=== PATIENT | female | born 1945 | race Caucasian/White ===

== ENCOUNTER 2022-09-18 13:35 | Inpatient (IN) | payer MEDICARE, SELFPAY ==
[2022-09-18 13:43] VITALS: BP 110/67; PULSE 94; RESP 18; TEMP 36.3; O2SAT 94; BMI 15.5
--- NOTE | 2022-09-18 15:23 | NURSING ---
Addendum entered by Nely Link 09/18/22 15:51: returned call and pt has no history of pneumo vaccine. ok with pt getting it here. Original Note: message left with PCP regarding pneumonia vaccine. not sure if pt has had one or not. awaiting return call.
[2022-09-18] MEDS: Carbidopa/Levodopa 25/100 Tablet GT ×2 (16:32→22:12)
[2022-09-18] MEDS: Jevity 1.5. 1,000 ML Bottle 240 ML GT ×2 (16:34→22:38)
[2022-09-18] MEDS: Acetaminophen 650 MG/20 ML UDC GT (16:35)
--- NOTE | 2022-09-18 21:33 | HP.PCM_ITS ---
HPI - General General Date of Admission: 09/18/22 Date of Service: 09/18/22 Chief Complaint: Here for rehabilitation. HPI Narrative ANA HOLLIS, is a 77 Female who presents with followin09/13/[address] [facility]. Right hip pain after fall, tripped walking into her bedroom. No head injury, no loss of consciousness. Hurts to fully straighten right leg. X-ray shows right femur fracture, NPO, pain control, Orthopedics consult, SCD, optimized for surgery, PT/OT. 09/14/2022 Dr. Jiménez performed percutaneous pinning right femoral neck fracture. Patient has dysphagia, NPO, tubefeed per PEG tube only. was using more TF to assist with weight gain. DVT prophylaxis per Ortho. Zyprexa IM last night for acute delirium with confusion. 09/16/2022 Urine tox negative. WBAT all extremities. Hemoglobin 13.1. 09/18/2022 Admit to TCU with debility, here for rehabilitation, strengthening, prior to discharge home with . [facility] Medical History (Updated 09/18/22 @ 21:[address] George Jacob MD) Chronic liver disease Closed right hip fracture Debility Dysphagia GERD (gastroesophageal reflux disease) History of basal cell cancer History of gastrostomy tube placement Parkinson disease Home Medications Jevity 1.5 Apolinar 240 ml G-tube Q6H tube feeding 09/18/22 [History Last Taken Unknown] acetaminophen 325 mg tablet 650 mg feeding tube Q6H PRN pain/fever 09/18/22 [History Last Taken Unknown] carbidopa 25 mg-levodopa 100 mg tablet 1.5 tab feeding tube 0800,2200 parkinsons 09/18/22 [History Last Taken Unknown] carbidopa 25 mg-levodopa 100 mg tablet 2 tab feeding tube 1200,1700 parkisons 09/18/22 [History Last Taken Unknown] docusate sodium 50 mg/5 mL oral liquid 200 mg feeding tube QHS bowels 09/18/22 [History Last Taken Unknown] enoxaparin 40 mg/0.4 mL subcutaneous syringe 40 mg subcut DAILY blood thinner 09/18/22 [History Last Taken Unknown] insulin lispro 100 unit/mL subcutaneous pen 0 - 12 sliding scale dose subcut TID blood sugars 09/18/22 [History Last Taken Unknown] sennosides 8.8 mg/5 mL oral syrup (senna) 10 ml PO QHS PRN stool softener 09/18/22 [History Last Taken Unknown] Allergy/AdvReac Type Severity Reaction Status Date / Time Sulfa (Sulfonamide Allergy Rash Verified 09/18/22 14:05 Antibiotics) [sulfa drugs] shrimp AdvReac Nausea Verified 09/18/22 14:05 Family History (Updated 09/18/22 @ 21:[address] George Jacob MD) Brother Skin cancer Father COPD (chronic obstructive pulmonary disease) Brother Myocardial infarction Surgical History (Updated 09/18/22 @ 21:[address] George Jacob MD) History of breast biopsy History of cholecystectomy History of lumbar fusion History of mandibular surgery History of partial hysterectomy History of tonsillectomy History of ureteroscopy Social History (Updated 09/18/22 @ 21:[address] George Jacob MD) household members: spouse Smoking Status: Former smoker alcohol intake: never substance use type: does not use ROS Constitutional Constitutional: Denies chills, fever(s) or weight gain ENT HEENT: Denies headache(s), nasal congestion or nasal discharge Cardiovascular Cardiovascular: Denies chest pain or palpitations Respiratory/Chest Respiratory/Chest: Denies cough, excessive phlegm production or shortness of breath with exertion Gastrointestinal Gastrointestinal: Denies abdominal pain, nausea or vomiting Genitourinary Genitourinary: Denies dysuria Musculoskeletal Musculoskeletal: Denies joint pain or joint swelling Integumentary Integumentary: Denies rash or wounds Neurologic Neurologic: Denies focal weakness, numbness or tingling Psychiatric Psychiatric: Denies anxiety, auditory hallucinations, depression, homicidal ideation or suicidal ideation Vital Signs Vital Signs Vital Signs: 09/18/22 13:43 09/18/22 13:43 Temperature 97.4 F L Temperature Source Oral Pulse Rate 94 Pulse Rhythm Regular Respiratory Rate 18 18 Respiratory Effort Normal Non-Labored Respiratory Depth Normal Respiratory Pattern Normal Blood Pressure 110/67 Blood Pressure Mean 81 Blood Pressure Source Monitor Blood Pressure Position Semi-Fowlers Blood Pressure Location Left Arm Pulse Ox 94 Oxygen Delivery Method Room Air Room Air Weight Weight: 44.906 kg Body Mass Index (BMI) 15.5 Physical Exam Const alert General Appearance: cooperative HEENT normocephalic Eyes PERRL and EOMs intact bilaterally Neck supple, no JVD and no carotid bruits Resp normal respiratory effort, normal air movement and clear to auscultation bilaterally Cardio regular rate and regular rhythm GI normal to inspection, nondistended, normoactive bowel sounds, non-tender and non-distended GI Narrative: PEG tube. Extremity normal capillary refill General Extremity: Negative for edema Skin no rashes or lesions noted General Skin Exam: no breakdown Psych affect normal Appearance: appropriate Assessment & Plan Assessment/Plan (1) Debility: (2) Closed right hip fracture: (3) History of basal cell cancer: (4) Chronic liver disease: (5) Parkinson disease: (6) Dysphagia: (7) GERD (gastroesophageal reflux disease): PLAN: Plan 77 year old female with below past medical history hospitalized for right femur fracture, underwent percutaneous pinning right femur fracture 09/14/[address] Jiménez, complicated by acute delirium, admitted to TCU with debility, here for rehabilitation, strengthening, prior to discharge home with . * Debility - PT/OT. * Cognition - ST. * Pain - Tylenol 650mg q6h prn. * Bowel - colace 200mg qhs, senokot 2 tablets qhs prn. * Adult immunization - Administer pneumonia vaccine, covid19 vaccine, flu vaccine. * DVT prophylaxis - Lovenox 40mg sc daily thru 10/01/2022. * Parkinson Disease - Sinemet 25/100mg 1.5 tablets 0800, 2200; Sinemet 25/100mg 2 tablets 1200, 1700. * Dysphagia s/p PEG tube - Jevity 1.5 240ml 4x/day. * GERD - Lansoprazole 30mg qhs.
[2022-09-18 21:40] LABS: Bedside Glucose 96 mg/dL (74-106)
[2022-09-18] MEDS: Docusate Sodium 100 MG/10 ML UDC 200 MG GT (22:12)
[2022-09-18] MEDS: Lansoprazole 15 MG Capsule.DR 30 MG GT (22:12)
[2022-09-18] MEDS: CLARIFY ORDER NOTE (22:39)
[2022-09-19] MEDS: Jevity 1.5. 1,000 ML Bottle 240 ML GT ×4 (04:42→23:20)
[2022-09-19] MEDS: Enoxaparin 40 MG/0.4 ML Syringe SC (04:56)
[2022-09-19 05:37] LABS: Absolute Lymphocyte Count 0.83 X10^3/uL (0.83-4.51); Absolute Neutrophil Count 5.4 X10^3/uL (2.0-7.7); Basophil# 0.04 X10^3/uL; Basophil% 0.6 % (0-1); Eosinophil# 0.27 X10^3/uL; Eosinophils% 3.8 % (0-5); Hematocrit 41.3 % (37-47); Hemoglobin 13.6 g/dL (12.0-15.0); Lymphocyte # 0.83 X10^3/ul (0.83-4.51); Lymphocyte % 11.7 % (19-41); Mean Corp Hgb Conc 32.9 g/dL (32-36); Mean Corpuscular Hgb 30.9 pg (27.0-32.0); Mean Corpuscular Volume 93.9 fL (81-99); Mean Platelet Vol. 10.3 fl (6.2-12.0); Monocyte# 0.52 X10^3/uL; Monocyte% 7.3 % (0-10); NRBC Flagged by Analyzer 0 % (0-5); Neutrophil # 5.37 X10^3/uL (2.7-7.7); Neutrophil % 75.9 % (47-70); Platelet Count 154 K/mm3 (150-450); RBC Distribution Width CV 11.7 % (11.6-14.6); RBC Distribution Width SD 40.3 fl (35.1-43.9); White Blood Count 7.1 K/mm3 (4.4-11.0)
[2022-09-19 05:38] LABS: Differential Indicated SCAN CRITERIA MET
[2022-09-19 05:56] LABS: Anion Gap 4 (5-15); BUN 26 mg/dL (7-18); BUN/Creat Ratio 44.1 RATIO (10-20); Calcium,Total 8.7 mg/dL (8.5-10.1); Chloride 103 mmol/L (98-107); Creatinine, Serum 0.59 mg/dL (0.55-1.02); EST Glomerular Filtration Rate 105 mL/min (>60); Est Glom Filt Rate - Afr Amer 127 mL/min (>60); Estimated Creatinine Clearance 32.34 ml/min; Glucose 173 mg/dL (74-106); Potassium 4.2 mmol/L (3.5-5.1); Sodium Level 136 mmol/L (136-145)
[2022-09-19 06:23] LABS: Bedside Glucose 184 mg/dL (74-106)
[2022-09-19] MEDS: Carbidopa/Levodopa 25/100 Tablet GT ×4 (08:28→22:26)
--- NOTE | 2022-09-19 11:01 | CASEMGMT ---
Social Work Met with patient to complete initial assessment. present for assessment and assisted in answering questions. Introduced self and role. Discussed code status. Confirmed full code. MOLST completed and placed in Dr folder. Educated to [facility] insurance with $0 copay and continued stay is not guaranteed with each review. Pt's goal is to return home with assisting pt. Pt has old peg. SW to continue to follow for DC planning. Sara Vieira, FOAM GUN OPERATOR BUSINESS INTERN
[2022-09-19] MEDS: Pneumococcal Vaccine 20 Valent 0.5 ML Syringe IM (11:05)
[2022-09-19] MEDS: Tuberculin,Purif.prot.deriv. 50 TU/ML Vial 0.1 ML ID (11:07)
[2022-09-19 11:27] LABS: Bedside Glucose 97 mg/dL (74-106)
--- NOTE | 2022-09-19 13:21 | PHA.CONS_ITS ---
TCU RX Drug Regimen Review Subjective: TCU admission. 77 YOF presented to [facility] on 09/13 for pain in hip after a fall. Hospitalized for right femur fracture, underwent percutaneous pinning right femur fracture 09/14/[address] Jiménez, complicated by acute delirium. Admitted to TCU on 09/18 with debility for rehabilitation and strengthening. Objective: Allergies Sulfa (Sulfonamide Antibiotics) [sulfa drugs] Allergy (Verified 09/18/22 14:05) Rash shrimp Adverse Reaction (Verified 09/18/22 14:05) Nausea Current Medications Generic Name Dose Route Start Last Admin Trade Name Freq PRN Reason Stop Dose Admin Acetaminophen 650 mg 09/18/22 14:11 09/18/22 16:35 Acetaminophen 650 Mg/20 Ml Udc GT 650 mg Q6H PRN Administration pain 1-10/fever Carbidopa/Levodopa 1.5 tablet 09/18/22 22:00 09/19/22 08:28 Carbidopa/Levodopa 25/100 Tablet GT 1.5 tablet 0800,2200 CHERI Administration Carbidopa/Levodopa 2 tablet 09/18/22 17:00 09/19/22 11:08 Carbidopa/Levodopa 25/100 Tablet GT 2 tablet 1200,1700 CHERI Administration Docusate Sodium 200 mg 09/18/22 22:00 09/18/22 22:12 Docusate Sodium 100 Mg/10 Ml Udc GT 200 mg QHS CHERI Administration Enoxaparin Sodium 40 mg 09/19/22 06:00 09/19/22 04:56 Enoxaparin 40 Mg/0.4 Ml Syringe SC 10/01/22 06:01 40 mg DAILY CHERI Administration Enteral Nutritional Formula 240 ml 09/18/22 17:00 09/19/22 11:38 Jevity 1.5. 1,000 Ml Bottle GT 240 ml 0500,1100,1700,2300 CHERI Administration Sodium Chloride 250 mls @ 15 mls/hr 09/18/22 14:02 IV .[id number] PRN Saline Flush Sodium Chloride 250 mls @ 15 mls/hr 09/18/22 14:02 IV .[id number] PRN Additional IVPB Infusion Lansoprazole 30 mg 09/18/22 22:00 09/18/22 22:12 Lansoprazole 15 Mg Capsule. GT 30 mg QHS CHERI Administration Senna 2 tablet 09/18/22 14:15 Senna Tablet GT QHS PRN stool softener Sodium Chloride 10 - 40 ml 09/18/22 14:02 0.9% Saline Lock 10 Ml Syringe IV UD PRN SALINE FLUSH Tuberculin PPD 0.1 ml 09/26/22 10:00 Tuberculin,Purif.Prot.Deriv. 50 Tu/Ml Vial ID 09/26/22 10:01 X1 ONE Problem List (Last Updated 09/18/22 @ 21:[address] George Jacob MD) GERD (gastroesophageal reflux disease) (Acute) Dysphagia (Acute) Parkinson disease (Acute) Chronic liver disease (Chronic) History of basal cell cancer (Acute) Closed right hip fracture (Acute) Debility (Acute) Vital Signs Temp Pulse Resp BP Pulse Ox O2 Del Method 97.4 F L 94 18 110/67 94 Room Air 09/18/22 13:43 09/18/22 13:43 09/18/22 13:43 09/18/22 13:43 09/18/22 13:43 09/18/22 13:43 Oxygen Delivery Method Room Air Weight: 44.906 kg Body Mass Index (BMI) 15.5 Sodium 136 mmol/L (136-145) 09/19/22 05:30 Potassium 4.2 mmol/L (3.5-5.1) 09/19/22 05:30 Chloride 103 mmol/L (98-107) 09/19/22 05:30 Carbon Dioxide 29.0 mmol/L (21.0-32.0) 09/19/22 05:30 Anion Gap 4 (5-15) L 09/19/22 05:30 BUN 26 mg/dL (7-18) H 09/19/22 05:30 Creatinine 0.59 mg/dL (0.55-1.02) 09/19/22 05:30 Est GFR (MDRD) Af Amer 127 mL/min (>60) 09/19/22 05:30 Est GFR (MDRD) Non-Af 105 mL/min (>60) 09/19/22 05:30 BUN/Creatinine Ratio 44.1 RATIO (10-20) H 09/19/22 05:30 Glucose 173 mg/dL (74-106) H 09/19/22 05:30 Assessment/Plan: 1. Pain: acetaminophen 650mg liquid GT Q6H PRN pain (1-10). Please continue to monitor pain, PRN medication use. Pt has had one dose for pain score of 4/10 in the hip. 2. Bowel: docusate liquid 200mg GT QHS, senna 2T GT QHS PRN constipation. Please continue to monitor increased/decreased diarrhea, PRN medication use. Resident has not had any PRN doses. No documented bowel movements. 3. DVT prophylaxis: enoxaparin 40mg SC daily?thru 10/01/2022. Please continue to monitor s/s of DVT, increased bleeding/bruising, renal function (CrCl 40 mL/min using actual body weight and SCr of 0.8 adjusted for age), h/h (Hgb: 13.6 Hct: 41.3). 4. Parkinson Disease: Sinemet 25/100mg 1.5 T GT @ 0800, 2200; Sinemet 25/100mg 2 T GT @ 1200, 1700. Please continue to monitor for s/s of dyskinesia, akinesia, GI side effects, wearing off. 5. GERD: lansoprazole 30mg GT QHS. Please continue to monitor for s/s of GERD, diarrhea/C. difficile infections (BEERs medication). Assessment/Plan for indications treated with psychotropic medications: None Medical chart and medication regimen reviewed. The following medication irregularities or issues were identified: None Date of Note:: 09/19/22
[2022-09-19 15:02] VITALS: BP 100/65; PULSE 90; RESP 16; TEMP 36.6; O2SAT 96
[2022-09-19 16:34] LABS: Bedside Glucose 82 mg/dL (74-106)
[2022-09-19 21:27] LABS: Bedside Glucose 97 mg/dL (74-106)
[2022-09-19] MEDS: Lansoprazole 15 MG Capsule.DR 30 MG GT (22:25)
[2022-09-19] MEDS: Docusate Sodium 100 MG/10 ML UDC 200 MG GT (22:26)
[2022-09-20] MEDS: Jevity 1.5. 1,000 ML Bottle 240 ML GT ×4 (04:59→22:12)
[2022-09-20] MEDS: Enoxaparin 40 MG/0.4 ML Syringe SC (05:00)
[2022-09-20 06:19] LABS: Bedside Glucose 146 mg/dL (74-106)
[2022-09-20] MEDS: Carbidopa/Levodopa 25/100 Tablet GT ×4 (07:39→22:11)
[2022-09-20] MEDS: Acetaminophen 650 MG/20 ML UDC GT ×2 (11:21→22:28)
[2022-09-20] MEDS: Ondansetron ODT 4 MG Tablet PO (11:21)
[2022-09-20 11:47] LABS: Bedside Glucose 160 mg/dL (74-106)
--- NOTE | 2022-09-20 13:43 | NURSING ---
Powerhouse Laborer Note; Activity Asset: Corie Reynoso is independent in her choice of daily activities however needs assistance at this time with smaller tasks due to her Parkinson's. She is able to read w/her magnifying glass but harder to hold the paper or books now. she will listen to the radio w/assistance in changing out the cd and turning on the radio. Activities placed a radio and big band music in her room after talking w/. Yemi stated she usually sleeps most of the day and with this new decline and he will be hear daily to visit with her. Staff will continue to do weekly visits and see if there is anything she may need.
[2022-09-20 14:15] VITALS: BP 99/61; PULSE 94; RESP 14; TEMP 36.4; O2SAT 96
--- NOTE | 2022-09-20 15:37 | NS ---
Res MST score = 6 - risk of malnutrition d/t wt changes, poor appetite and tf
[2022-09-20 21:57] VITALS: PULSE 96; RESP 14; O2SAT 96
[2022-09-20] MEDS: Docusate Sodium 100 MG/10 ML UDC 200 MG GT (22:11)
[2022-09-20] MEDS: Lansoprazole 15 MG Capsule.DR 30 MG GT (22:11)
[2022-09-21] MEDS: Enoxaparin 40 MG/0.4 ML Syringe SC (05:15)
[2022-09-21] MEDS: Jevity 1.5. 1,000 ML Bottle 240 ML GT ×4 (05:33→22:19)
[2022-09-21] MEDS: Carbidopa/Levodopa 25/100 Tablet GT ×4 (07:45→22:23)
--- NOTE | 2022-09-21 11:44 | NURSING ---
Patients is requesting an earlier time for evening Jevity bolus, states that 2300 is too late for patient and that is why her stomach is bothering her.
--- NOTE | 2022-09-21 12:11 | NURSING ---
This nurse walked by patients room and observed patients laying on floor. This nurse checked in on patients , he states that he is just resting while his is resting.
[2022-09-21 16:00] VITALS: BP 105/66; PULSE 89; RESP 16; TEMP 36.6; O2SAT 95
[2022-09-21] MEDS: Menthol/Lanolin/Calamine/Znox 113 GM Tube 1 APPLIC TOPICAL (17:55)
[2022-09-21] MEDS: Lansoprazole 15 MG Capsule.DR 30 MG GT (22:19)
[2022-09-21] MEDS: Docusate Sodium 100 MG/10 ML UDC 200 MG GT (22:22)
[2022-09-22] MEDS: Enoxaparin 40 MG/0.4 ML Syringe SC (05:20)
[2022-09-22] MEDS: Jevity 1.5. 1,000 ML Bottle 240 ML GT ×4 (05:21→23:27)
[2022-09-22] MEDS: Menthol/Lanolin/Calamine/Znox 113 GM Tube 1 APPLIC TOPICAL ×2 (05:25→17:54)
[2022-09-22] MEDS: Carbidopa/Levodopa 25/100 Tablet GT ×4 (08:13→23:29)
[2022-09-22 16:00] VITALS: BP 122/61; PULSE 93; RESP 16; TEMP 36.4; O2SAT 95
--- NOTE | 2022-09-22 21:33 | NURSING ---
Spouse called into unit and spoke w/ this nurse regarding pt's intermittent confusion. He reports pt was requesting to leave and he had to explain to her why she is on this unit. Informed spouse this nurse had the same conversation w/ pt earlier this shift. This nurse informed pt therapy, SW, and spouse needed to be involved in dc planning. Updated spouse on pt experiencing insomnia. He thinks pt may be more concerned w/ being incontinent at hs as he sets his alarm to toilet her every 2 1/2 hours at hs. Pt was connected to a purewick at the facility prior to transfer to TCU. Informed spouse this nurse will plan to ask Dr. Jacob for a purewick and if insomnia still persists, staff may consider asking for a mild sleep aid. He verbalizes understanding and encouraged staff to contact him for any additional questions or concerns. Spouse also encouraged to call unit for any additional needs.
--- NOTE | 2022-09-22 21:39 | NURSING ---
Paged Dr. Jacob w/ return call within minutes. Updated on conversation w/ spouse as per previous noted and informed pt witnessed by another staff member that she was standing without assistance. New orders received for a purewick at hs and bed and chair alarms.
[2022-09-22] MEDS: Lansoprazole 15 MG Capsule.DR 30 MG GT (23:28)
[2022-09-22] MEDS: Docusate Sodium 100 MG/10 ML UDC 200 MG GT (23:29)
[2022-09-22] MEDS: Acetaminophen 650 MG/20 ML UDC GT (23:30)
[2022-09-23] MEDS: Menthol/Lanolin/Calamine/Znox 113 GM Tube 1 APPLIC TOPICAL ×2 (06:13→18:37)
[2022-09-23] MEDS: Enoxaparin 40 MG/0.4 ML Syringe SC (06:14)
[2022-09-23] MEDS: Jevity 1.5. 1,000 ML Bottle 240 ML GT ×4 (06:14→20:32)
[2022-09-23] MEDS: Carbidopa/Levodopa 25/100 Tablet GT ×4 (07:52→20:48)
[2022-09-23] MEDS: Acetaminophen 650 MG/20 ML UDC GT (09:02)
[2022-09-23 11:22] VITALS: BP 128/73; PULSE 90; RESP 18; TEMP 36.3; O2SAT 96
--- NOTE | 2022-09-23 14:33 | NURSING ---
Addendum entered by Aislinn Sam 10/07/22 15:20: Followed up with and patient. reports he has been encouraging patient to get the vaccine here but so far she hasn't said yes. Told him to notify staff if she changes her mind, provided education on vaccine. Addendum entered by Aislinn Sam 09/30/22 13:12: present and has picture of vaccine card on his phone. Record indicates she would be due for the BV covid booster. Offered to give booster. He then reports that he's unsure if that's the most recent ones she's had. He wants to hold off on booster and check his other records at home. Original Note: Asked about covid vaccine. Per him patient has had an initial set and a booster. He is on his way to the hospital but will bring the vaccine card when he comes in tomorrow.
--- NOTE | 2022-09-23 19:33 | NURSING ---
Pt had a nose bleed lasting approximately 10 minutes w/ minimal blood loss. Tissues were used along w/ light pressure to bridge of nose. Denies pain, light headedness, and dizziness.
[2022-09-23] MEDS: Docusate Sodium 100 MG/10 ML UDC 200 MG GT (20:48)
[2022-09-23] MEDS: Lansoprazole 15 MG Capsule.DR 30 MG GT (20:48)
[2022-09-24] MEDS: Jevity 1.5. 1,000 ML Bottle 240 ML GT ×4 (05:22→22:03)
[2022-09-24] MEDS: Enoxaparin 40 MG/0.4 ML Syringe SC (05:23)
[2022-09-24] MEDS: Menthol/Lanolin/Calamine/Znox 113 GM Tube 1 APPLIC TOPICAL ×2 (05:24→18:56)
[2022-09-24] MEDS: Carbidopa/Levodopa 25/100 Tablet GT ×4 (09:16→22:04)
--- NOTE | 2022-09-24 14:02 | CASEMGMT ---
Social Work BIMS () and PHQ-9 (09/24) completed for MDS assessment. Sara Vieira MSW HEALTH EDUCATION COORDINATOR
[2022-09-24 15:35] VITALS: BMI 15.5
[2022-09-24 15:39] VITALS: BP 98/66; PULSE 87; RESP 16; TEMP 36.4; O2SAT 96
[2022-09-24 22:00] VITALS: PULSE 84; RESP 16; O2SAT 97
[2022-09-24] MEDS: Docusate Sodium 100 MG/10 ML UDC 200 MG GT (22:04)
[2022-09-24] MEDS: Lansoprazole 15 MG Capsule.DR 30 MG GT (22:04)
[2022-09-25] MEDS: Jevity 1.5. 1,000 ML Bottle 240 ML GT (06:00)
[2022-09-25] MEDS: Menthol/Lanolin/Calamine/Znox 113 GM Tube 1 APPLIC TOPICAL ×2 (06:00→16:46)
[2022-09-25] MEDS: Carbidopa/Levodopa 25/100 Tablet GT ×4 (07:55→21:50)
--- NOTE | 2022-09-25 09:31 | CASEMGMT ---
Social Work IDT met with patient and for care plan meeting. Discussed patient's progress in PT/OT/ST/SN. Educated to [facility] insurance with NRD 09/26 and continued stay is not guaranteed with each review. Pt's goal is to DC home with . is very doting and can assist. Pt needs to return closer to PLOF for to safely assist at home. Encouraged to care for himself as well. is aware pt may need AL or SNF prior to home. SW to continue to follow for DC planning. Sara Vieira, SENIOR ACCOUNT DIRECTOR PIPE BENDER
--- NOTE | 2022-09-25 10:53 | NURSING ---
Accounts Receivable Representative Note; MDS Complete
[2022-09-25] MEDS: Jevity 1.5. 1,000 ML Bottle 300 ML GT ×3 (11:54→22:49)
[2022-09-25 13:31] VITALS: BP 103/62; PULSE 90; RESP 16; TEMP 36.7; O2SAT 96
[2022-09-25] MEDS: Lansoprazole 15 MG Capsule.DR 30 MG GT (21:50)
[2022-09-25] MEDS: Docusate Sodium 100 MG/10 ML UDC 200 MG GT (21:50)
[2022-09-26] MEDS: Jevity 1.5. 1,000 ML Bottle 300 ML GT ×5 (04:36→21:29)
[2022-09-26] MEDS: Menthol/Lanolin/Calamine/Znox 113 GM Tube 1 APPLIC TOPICAL ×2 (04:59→18:39)
--- NOTE | 2022-09-26 05:00 | NURSING ---
Jevity 1.5 tube feed increased to 300ml boluses. 0 residual noted at this time. 300mL administered, followed by 200mL water flush. Patient tolerated well. Will continue to monitor.
[2022-09-26 05:59] LABS: Absolute Lymphocyte Count 0.79 X10^3/uL (0.83-4.51); Absolute Neutrophil Count 5.6 X10^3/uL (2.0-7.7); Basophil# 0.03 X10^3/uL; Basophil% 0.4 % (0-1); Eosinophil# 0.09 X10^3/uL; Eosinophils% 1.3 % (0-5); Hematocrit 36.7 % (37-47); Hemoglobin 12.1 g/dL (12.0-15.0); Lymphocyte # 0.79 X10^3/ul (0.83-4.51); Lymphocyte % 11.2 % (19-41); Mean Corpuscular Hgb 30.8 pg (27.0-32.0); Mean Corpuscular Volume 93.4 fL (81-99); Mean Platelet Vol. 9.4 fl (6.2-12.0); Monocyte# 0.45 X10^3/uL; Monocyte% 6.4 % (0-10); NRBC Flagged by Analyzer 0 % (0-5); Neutrophil # 5.64 X10^3/uL (2.7-7.7); Neutrophil % 80.3 % (47-70); Platelet Count 223 K/mm3 (150-450); RBC Distribution Width CV 11.5 % (11.6-14.6); RBC Distribution Width SD 39.2 fl (35.1-43.9); Red Blood Count 3.93 M/mm3 (4.2-5.4)
[2022-09-26 06:50] LABS: Anion Gap 4 (5-15); BUN 21 mg/dL (7-18); BUN/Creat Ratio 34.2 RATIO (10-20); Calcium,Total 8.4 mg/dL (8.5-10.1); Chloride 94 mmol/L (98-107); Creatinine, Serum 0.61 mg/dL (0.55-1.02); EST Glomerular Filtration Rate 100 mL/min (>60); Est Glom Filt Rate - Afr Amer 121 mL/min (>60); Estimated Creatinine Clearance 32.34 ml/min; Glucose 140 mg/dL (74-106); Sodium Level 128 mmol/L (136-145)
[2022-09-26 08:36] LABS: Osmolality, Serum 285 mOsm/KG (280-301)
[2022-09-26] MEDS: Carbidopa/Levodopa 25/100 Tablet GT ×4 (08:44→21:28)
[2022-09-26] MEDS: oxyCODONE 5 MG Tablet GT (09:15)
[2022-09-26] MEDS: Tuberculin,Purif.prot.deriv. 50 TU/ML Vial 0.1 ML ID (10:26)
[2022-09-26 15:25] VITALS: BP 102/57; PULSE 94; RESP 16; TEMP 36.6; O2SAT 95
[2022-09-26 15:55] LABS: Urine Sodium 40 mmol/L (Not Establ.)
[2022-09-26 16:31] LABS: Osmolality, Urine 443 mOsm/KG
[2022-09-26] MEDS: Lansoprazole 15 MG Capsule.DR 30 MG GT (21:29)
[2022-09-26] MEDS: Docusate Sodium 100 MG/10 ML UDC 200 MG GT (21:29)
[2022-09-26 21:49] VITALS: PULSE 90; RESP 14; O2SAT 97
[2022-09-27] MEDS: Menthol/Lanolin/Calamine/Znox 113 GM Tube 1 APPLIC TOPICAL ×2 (05:23→17:46)
[2022-09-27] MEDS: Jevity 1.5. 1,000 ML Bottle 300 ML GT ×3 (05:23→22:48)
[2022-09-27 06:43] LABS: Anion Gap 6 (5-15); BUN 20 mg/dL (7-18); BUN/Creat Ratio 36.6 RATIO (10-20); Calcium,Total 8.9 mg/dL (8.5-10.1); Chloride 100 mmol/L (98-107); Creatinine, Serum 0.55 mg/dL (0.55-1.02); EST Glomerular Filtration Rate 114 mL/min (>60); Est Glom Filt Rate - Afr Amer 138 mL/min (>60); Estimated Creatinine Clearance 32.34 ml/min; Glucose 117 mg/dL (74-106); Potassium 4.4 mmol/L (3.5-5.1); Sodium Level 134 mmol/L (136-145)
--- NOTE | 2022-09-27 07:14 | MDS.RN ---
Information for the mds was obtained from review of the clinical record, interview of resident, staff, and direct observation of resident's care.
[2022-09-27] MEDS: Carbidopa/Levodopa 25/100 Tablet GT ×4 (07:50→23:04)
[2022-09-27 16:00] VITALS: BP 108/62; PULSE 88; RESP 14; TEMP 36.6; O2SAT 98
--- NOTE | 2022-09-27 18:18 | NURSING ---
pt's refusing straight cath for urine sample. Dr. Gusman notified. Ordered to D/C order.
--- NOTE | 2022-09-27 22:45 | NURSING ---
Residual of peg tube was 0ml. Pt had bolus feed scheduled for 1999 but did not want bolus feed at that time. She stated her stomach was a little upset. Pt was given her bolus feed with her HS medications. pt tolerated well.
[2022-09-27] MEDS: Lansoprazole 15 MG Capsule.DR 30 MG GT (22:49)
[2022-09-27] MEDS: Docusate Sodium 100 MG/10 ML UDC 200 MG GT (22:50)
[2022-09-28] MEDS: Jevity 1.5. 1,000 ML Bottle 300 ML GT ×4 (05:55→21:31)
[2022-09-28] MEDS: Menthol/Lanolin/Calamine/Znox 113 GM Tube 1 APPLIC TOPICAL ×2 (05:56→16:47)
[2022-09-28] MEDS: Carbidopa/Levodopa 25/100 Tablet GT ×4 (08:07→21:25)
[2022-09-28 15:21] VITALS: BP 101/60; PULSE 95; RESP 15; TEMP 35.9; O2SAT 96
[2022-09-28] MEDS: Acetaminophen 650 MG/20 ML UDC 1000 MG GT (16:45)
[2022-09-28 20:00] VITALS: PULSE 90; RESP 16; O2SAT 97
[2022-09-28] MEDS: Lansoprazole 15 MG Capsule.DR 30 MG GT (21:25)
[2022-09-28] MEDS: Docusate Sodium 100 MG/10 ML UDC 200 MG GT (21:25)
[2022-09-29] MEDS: Jevity 1.5. 1,000 ML Bottle 300 ML GT ×4 (05:57→21:57)
[2022-09-29] MEDS: Menthol/Lanolin/Calamine/Znox 113 GM Tube 1 APPLIC TOPICAL ×2 (05:58→17:07)
[2022-09-29] MEDS: Carbidopa/Levodopa 25/100 Tablet GT ×4 (08:50→21:58)
[2022-09-29 10:00] VITALS: PULSE 90; RESP 18; O2SAT 95
--- NOTE | 2022-09-29 12:19 | NURSING ---
09 BILINGUAL CASE MANAGER took patient to Bathroom, noted small amount of blood in urine. BM noted too. will monitor Mary Spain RN
[2022-09-29 13:19] VITALS: BP 104/60; PULSE 83; RESP 16; TEMP 36.7; O2SAT 99
[2022-09-29] MEDS: Acetaminophen 650 MG/20 ML UDC 1000 MG GT (21:58)
[2022-09-29] MEDS: Docusate Sodium 100 MG/10 ML UDC 200 MG GT (21:58)
[2022-09-29] MEDS: Lansoprazole 15 MG Capsule.DR 30 MG GT (21:58)
[2022-09-30] MEDS: Menthol/Lanolin/Calamine/Znox 113 GM Tube 1 APPLIC TOPICAL ×2 (05:57→16:49)
[2022-09-30] MEDS: Jevity 1.5. 1,000 ML Bottle 300 ML GT ×2 (05:57→11:11)
[2022-09-30] MEDS: Carbidopa/Levodopa 25/100 Tablet GT ×4 (08:02→21:56)
[2022-09-30] MEDS: Acetaminophen 650 MG/20 ML UDC 1000 MG GT (08:07)
--- NOTE | 2022-09-30 08:16 | NURSING ---
50cc residual this AM, did administer meds via PEG. pt to have shower with therapy today, requesting tylenol per . requesting that tube feeds be decreased to 240ccm will update length control tester.
--- NOTE | 2022-09-30 09:31 | NURSING ---
pt just finishing with shower, assess open area to buttocks, rica applied. pt had order for mepilex, but did not apply another d/t stating he feels it is holding moisture. order dc'd also it was reported pt can be incontinent of urine and stool as well. pt on turning schedule every 2 hrs.
[2022-09-30 16:00] VITALS: BP 106/63; PULSE 90; RESP 14; TEMP 37.1; O2SAT 96
[2022-09-30] MEDS: Jevity 1.5. 1,000 ML Bottle 240 ML GT ×2 (16:49→21:55)
[2022-09-30] MEDS: Docusate Sodium 100 MG/10 ML UDC 200 MG GT (21:57)
[2022-09-30] MEDS: Lansoprazole 15 MG Capsule.DR 30 MG GT (21:57)
[2022-09-30 22:12] VITALS: PULSE 90; RESP 16; O2SAT 96
[2022-10-01] MEDS: Jevity 1.5. 1,000 ML Bottle 240 ML GT ×4 (05:24→20:18)
[2022-10-01] MEDS: Menthol/Lanolin/Calamine/Znox 113 GM Tube 1 APPLIC TOPICAL ×2 (05:31→17:24)
[2022-10-01] MEDS: Carbidopa/Levodopa 25/100 Tablet GT ×4 (08:50→20:21)
[2022-10-01] MEDS: Acetaminophen 650 MG/20 ML UDC 1000 MG GT (08:51)
[2022-10-01 15:00] VITALS: BMI 15.3
[2022-10-01 16:00] VITALS: BP 100/63; PULSE 89; RESP 15; TEMP 36.6; O2SAT 96
[2022-10-01] MEDS: Lansoprazole 15 MG Capsule.DR 30 MG GT (20:19)
[2022-10-01] MEDS: Docusate Sodium 100 MG/10 ML UDC 200 MG GT (20:21)
[2022-10-02] MEDS: Jevity 1.5. 1,000 ML Bottle 240 ML GT ×4 (05:49→22:03)
[2022-10-02] MEDS: Menthol/Lanolin/Calamine/Znox 113 GM Tube 1 APPLIC TOPICAL ×2 (05:50→17:52)
[2022-10-02] MEDS: Carbidopa/Levodopa 25/100 Tablet GT ×4 (08:02→22:03)
--- NOTE | 2022-10-02 09:37 | NURSING ---
[facility] here for transport to u dr. rai. pt to cart with assist and hob up 30. report given to ems personnel
--- NOTE | 2022-10-02 11:13 | NURSING ---
pt back from dr. rai. up in chair. on his way with new orders\paperwork. montserrat out per ems and vs stable
[2022-10-02 13:47] VITALS: BP 86/50; PULSE 91; RESP 16; TEMP 36.8; O2SAT 94
[2022-10-02] MEDS: Docusate Sodium 100 MG/10 ML UDC 200 MG GT (22:02)
[2022-10-02] MEDS: Lansoprazole 15 MG Capsule.DR 30 MG GT (22:03)
[2022-10-02 22:43] VITALS: PULSE 66; RESP 16; O2SAT 99
[2022-10-03 05:47] LABS: Absolute Lymphocyte Count 0.87 X10^3/uL (0.83-4.51); Absolute Neutrophil Count 3.6 X10^3/uL (2.0-7.7); Basophil# 0.03 X10^3/uL; Basophil% 0.6 % (0-1); Hematocrit 37.9 % (37-47); Hemoglobin 12.7 g/dL (12.0-15.0); Lymphocyte # 0.87 X10^3/ul (0.83-4.51); Mean Corp Hgb Conc 33.5 g/dL (32-36); Mean Corpuscular Hgb 31.8 pg (27.0-32.0); Mean Platelet Vol. 9.2 fl (6.2-12.0); Monocyte# 0.45 X10^3/uL; Monocyte% 8.8 % (0-10); NRBC Flagged by Analyzer 0 % (0-5); Neutrophil # 3.64 X10^3/uL (2.7-7.7); Neutrophil % 71.2 % (47-70); Platelet Count 231 K/mm3 (150-450); RBC Distribution Width CV 11.9 % (11.6-14.6); RBC Distribution Width SD 41.6 fl (35.1-43.9); Red Blood Count 3.99 M/mm3 (4.2-5.4); White Blood Count 5.1 K/mm3 (4.4-11.0)
[2022-10-03] MEDS: Jevity 1.5. 1,000 ML Bottle 240 ML GT ×4 (05:48→21:55)
[2022-10-03 06:23] LABS: Anion Gap 3 (5-15); BUN 25 mg/dL (7-18); BUN/Creat Ratio 43.6 RATIO (10-20); Calcium,Total 8.8 mg/dL (8.5-10.1); Chloride 102 mmol/L (98-107); Creatinine, Serum 0.57 mg/dL (0.55-1.02); EST Glomerular Filtration Rate 108 mL/min (>60); Est Glom Filt Rate - Afr Amer 131 mL/min (>60); Estimated Creatinine Clearance 32.04 ml/min; Glucose 90 mg/dL (74-106); Potassium 4.2 mmol/L (3.5-5.1); Sodium Level 137 mmol/L (136-145)
[2022-10-03] MEDS: Carbidopa/Levodopa 25/100 Tablet GT ×4 (07:40→21:54)
[2022-10-03] MEDS: Menthol/Lanolin/Calamine/Znox 113 GM Tube 1 APPLIC TOPICAL ×2 (07:53→18:06)
[2022-10-03] MEDS: Acetaminophen 650 MG/20 ML UDC 1000 MG GT (09:11)
[2022-10-03 16:00] VITALS: BP 96/61; PULSE 88; RESP 18; TEMP 36.4; O2SAT 95
[2022-10-03] MEDS: Lansoprazole 15 MG Capsule.DR 30 MG GT (21:54)
[2022-10-03] MEDS: Docusate Sodium 100 MG/10 ML UDC 200 MG GT (21:54)
[2022-10-04] MEDS: Jevity 1.5. 1,000 ML Bottle 240 ML GT ×4 (05:14→22:26)
[2022-10-04] MEDS: Menthol/Lanolin/Calamine/Znox 113 GM Tube 1 APPLIC TOPICAL ×2 (05:15→22:27)
[2022-10-04] MEDS: Carbidopa/Levodopa 25/100 Tablet GT ×4 (08:50→22:29)
[2022-10-04 15:56] VITALS: BP 105/59; PULSE 94; RESP 16; TEMP 36.6; O2SAT 95
[2022-10-04] MEDS: Docusate Sodium 100 MG/10 ML UDC 200 MG GT (22:27)
[2022-10-04] MEDS: Lansoprazole 15 MG Capsule.DR 30 MG GT (22:28)
[2022-10-05] MEDS: Jevity 1.5. 1,000 ML Bottle 240 ML GT ×4 (06:40→22:32)
[2022-10-05] MEDS: Menthol/Lanolin/Calamine/Znox 113 GM Tube 1 APPLIC TOPICAL ×2 (06:41→17:55)
[2022-10-05] MEDS: Carbidopa/Levodopa 25/100 Tablet GT ×4 (08:25→22:33)
[2022-10-05 13:48] VITALS: BP 124/55; PULSE 88; RESP 27; TEMP 36.7; O2SAT 96
[2022-10-05] MEDS: Docusate Sodium 100 MG/10 ML UDC 200 MG GT (22:32)
[2022-10-05] MEDS: Lansoprazole 15 MG Capsule.DR 30 MG GT (22:33)
[2022-10-06] MEDS: Jevity 1.5. 1,000 ML Bottle 240 ML GT ×4 (06:52→21:25)
[2022-10-06] MEDS: Menthol/Lanolin/Calamine/Znox 113 GM Tube 1 APPLIC TOPICAL ×2 (06:53→17:09)
[2022-10-06] MEDS: Carbidopa/Levodopa 25/100 Tablet GT ×4 (08:45→21:26)
[2022-10-06 14:28] VITALS: BP 105/58; PULSE 95; RESP 20; TEMP 36.8; O2SAT 95
[2022-10-06] MEDS: Acetaminophen 650 MG/20 ML UDC 1000 MG GT (15:25)
--- NOTE | 2022-10-06 21:20 | NURSING ---
pt had 0ml residual
[2022-10-06] MEDS: Docusate Sodium 100 MG/10 ML UDC 200 MG GT (21:25)
[2022-10-06] MEDS: Lansoprazole 15 MG Capsule.DR 30 MG GT (21:25)
[2022-10-07] MEDS: traMADol 50 MG Tablet GT (00:41)
[2022-10-07] MEDS: Jevity 1.5. 1,000 ML Bottle 240 ML GT ×4 (05:14→21:31)
[2022-10-07] MEDS: Menthol/Lanolin/Calamine/Znox 113 GM Tube 1 APPLIC TOPICAL ×2 (05:14→17:43)
[2022-10-07] MEDS: Carbidopa/Levodopa 25/100 Tablet GT ×4 (07:42→21:36)
--- NOTE | 2022-10-07 12:07 | CASEMGMT ---
Addendum entered by Sara Vieira 10/08/22 15:17: SW spoke with [facility] and they do not have any apartments available. SW left voicemail with admission at [facility], requesting call back. Will continue to follow. Original Note: Social Work Insurance asked for updates this date. SW spoke with to update on insurance review. Pt remains a x2 assist. requested referrals to [facility], [facility], and [facility]. SW educated most ALs do not accept x2 assist. states he plans to stay in AL with her as pt does not like when goes home without her. requesting a one-bedroom apt. SW placed referrals via [facility]. LESLEY SethiW
[2022-10-07 14:05] VITALS: BP 106/62; PULSE 95; RESP 16; TEMP 36.7; O2SAT 100
[2022-10-07] MEDS: Lansoprazole 15 MG Capsule.DR 30 MG GT (21:32)
[2022-10-07] MEDS: Docusate Sodium 100 MG/10 ML UDC 200 MG GT (21:32)
[2022-10-07] MEDS: Senna Tablet 2 TABLET GT (21:39)
[2022-10-07 22:00] VITALS: PULSE 94; RESP 16; O2SAT 96
[2022-10-08] MEDS: Jevity 1.5. 1,000 ML Bottle 240 ML GT ×4 (05:39→22:17)
[2022-10-08] MEDS: Carbidopa/Levodopa 25/100 Tablet GT ×4 (08:15→22:18)
[2022-10-08 15:57] VITALS: BP 92/54; PULSE 84; RESP 16; TEMP 36.7; O2SAT 96
[2022-10-08] MEDS: Menthol/Lanolin/Calamine/Znox 113 GM Tube 1 APPLIC TOPICAL (17:25)
[2022-10-08 22:00] VITALS: PULSE 81; RESP 16; O2SAT 99
[2022-10-08] MEDS: Docusate Sodium 100 MG/10 ML UDC 200 MG GT (22:18)
[2022-10-08] MEDS: Lansoprazole 15 MG Capsule.DR 30 MG GT (22:18)
[2022-10-09] MEDS: Jevity 1.5. 1,000 ML Bottle 240 ML GT ×4 (05:45→19:37)
[2022-10-09] MEDS: Menthol/Lanolin/Calamine/Znox 113 GM Tube 1 APPLIC TOPICAL ×2 (05:45→17:35)
[2022-10-09] MEDS: Carbidopa/Levodopa 25/100 Tablet GT ×4 (07:40→19:36)
[2022-10-09 15:24] VITALS: BP 81/57; PULSE 82; RESP 14; TEMP 36.6; O2SAT 95
--- NOTE | 2022-10-09 16:06 | CASEMGMT ---
Social Work SW spoke with to update insurance approved with [employer]D 10/14. Updated that [facility] [place] and [facility] cannot accept pt. However, [facility] in [place] could potentially accept that LOC. SW offered to make referral and/or provide list of AL's and SNFs. agreed to referral to [facility] in [place], and a list. SW provided printed list of ALs and SNFs with wuality and resource data via [employer] [facility]. Referral sent to [facility] via [facility]. Will continue to follow. LESLEY SethiW
[2022-10-09] MEDS: Docusate Sodium 100 MG/10 ML UDC 200 MG GT (19:36)
[2022-10-09] MEDS: Lansoprazole 15 MG Capsule.DR 30 MG GT (19:36)
[2022-10-10] MEDS: Jevity 1.5. 1,000 ML Bottle 240 ML GT ×4 (04:47→21:29)
[2022-10-10] MEDS: Menthol/Lanolin/Calamine/Znox 113 GM Tube 1 APPLIC TOPICAL ×2 (04:48→17:17)
[2022-10-10 06:07] LABS: Absolute Lymphocyte Count 0.98 X10^3/uL (0.83-4.51); Absolute Neutrophil Count 4.9 X10^3/uL (2.0-7.7); Basophil# 0.02 X10^3/uL; Basophil% 0.3 % (0-1); Eosinophil# 0.16 X10^3/uL; Eosinophils% 2.5 % (0-5); Hematocrit 43.8 % (37-47); Hemoglobin 14.6 g/dL (12.0-15.0); Lymphocyte # 0.98 X10^3/ul (0.83-4.51); Lymphocyte % 15.2 % (19-41); Mean Corp Hgb Conc 33.3 g/dL (32-36); Mean Corpuscular Hgb 31.9 pg (27.0-32.0); Mean Corpuscular Volume 95.6 fL (81-99); Mean Platelet Vol. 9.6 fl (6.2-12.0); Monocyte% 6.2 % (0-10); NRBC Flagged by Analyzer 0 % (0-5); Neutrophil # 4.88 X10^3/uL (2.7-7.7); Neutrophil % 75.5 % (47-70); Platelet Count 197 K/mm3 (150-450); RBC Distribution Width CV 11.7 % (11.6-14.6); RBC Distribution Width SD 40.8 fl (35.1-43.9); Red Blood Count 4.58 M/mm3 (4.2-5.4); White Blood Count 6.5 K/mm3 (4.4-11.0)
[2022-10-10 06:45] LABS: Anion Gap 5 (5-15); BUN 18 mg/dL (7-18); BUN/Creat Ratio 25.8 RATIO (10-20); Calcium,Total 9.4 mg/dL (8.5-10.1); Chloride 100 mmol/L (98-107); Cholesterol 131 mg/dL (200); EST Glomerular Filtration Rate 86 mL/min (>60); Est Glom Filt Rate - Afr Amer 104 mL/min (>60); Estimated Creatinine Clearance 32.04 ml/min; Glucose 118 mg/dL (74-106); High Density Lipoprotein 73 mg/dL; Potassium 4.1 mmol/L (3.5-5.1); Sodium Level 135 mmol/L (136-145); Triglycerides 41 mg/dL; Very Low Density Lipoprotein 8 mg/dL (5-40)
[2022-10-10 08:24] LABS: Vitamin D,25 Hydroxy 41.4 ng/mL
[2022-10-10] MEDS: Carbidopa/Levodopa 25/100 Tablet GT ×4 (08:40→21:28)
[2022-10-10 14:45] VITALS: BP 112/64; PULSE 100; RESP 16; TEMP 36.5; O2SAT 98
[2022-10-10] MEDS: Docusate Sodium 100 MG/10 ML UDC 200 MG GT (21:28)
[2022-10-10] MEDS: Lansoprazole 15 MG Capsule.DR 30 MG GT (21:29)
[2022-10-10 21:48] VITALS: PULSE 88; RESP 14; O2SAT 99
[2022-10-11] MEDS: Jevity 1.5. 1,000 ML Bottle 240 ML GT ×4 (04:52→20:18)
[2022-10-11] MEDS: Menthol/Lanolin/Calamine/Znox 113 GM Tube 1 APPLIC TOPICAL ×2 (05:23→17:44)
[2022-10-11] MEDS: Carbidopa/Levodopa 25/100 Tablet GT ×4 (08:16→20:19)
[2022-10-11 14:14] VITALS: BP 106/59; PULSE 91; RESP 17; TEMP 36.6; O2SAT 96
[2022-10-11 19:54] VITALS: PULSE 92; RESP 14; O2SAT 95
[2022-10-11] MEDS: Docusate Sodium 100 MG/10 ML UDC 200 MG GT (20:19)
[2022-10-11] MEDS: Lansoprazole 15 MG Capsule.DR 30 MG GT (20:19)
[2022-10-12] MEDS: Jevity 1.5. 1,000 ML Bottle 240 ML GT ×4 (04:15→19:54)
[2022-10-12] MEDS: Menthol/Lanolin/Calamine/Znox 113 GM Tube 1 APPLIC TOPICAL ×2 (04:16→18:47)
[2022-10-12] MEDS: Carbidopa/Levodopa 25/100 Tablet GT ×4 (07:40→21:48)
[2022-10-12 15:47] VITALS: BP 110/68; PULSE 80; RESP 16; TEMP 36.4; O2SAT 98
[2022-10-12] MEDS: Lansoprazole 15 MG Capsule.DR 30 MG GT (19:54)
[2022-10-12] MEDS: Docusate Sodium 100 MG/10 ML UDC 200 MG GT (19:54)
[2022-10-12 20:07] VITALS: PULSE 94; RESP 14; O2SAT 97
[2022-10-13] MEDS: Menthol/Lanolin/Calamine/Znox 113 GM Tube 1 APPLIC TOPICAL ×2 (06:20→17:52)
[2022-10-13] MEDS: Jevity 1.5. 1,000 ML Bottle 240 ML GT ×4 (06:21→21:42)
[2022-10-13] MEDS: Carbidopa/Levodopa 25/100 Tablet GT ×4 (07:50→22:05)
[2022-10-13 15:51] VITALS: BP 114/68; PULSE 87; RESP 15; TEMP 36.4; O2SAT 97
[2022-10-13] MEDS: Lansoprazole 15 MG Capsule.DR 30 MG GT (21:37)
[2022-10-13] MEDS: Acetaminophen 650 MG/20 ML UDC 1000 MG GT (21:39)
[2022-10-13] MEDS: Docusate Sodium 100 MG/10 ML UDC 200 MG GT (21:39)
--- NOTE | 2022-10-14 00:40 | NURSING ---
Pt Pt awake laying in bed. Covers are off. Noted fine-course tremors to both hands. Pt verbalizes she thinks she will be getting up in a couple of minutes. Reoriented to time and place. Covers replaced. Call light w/ in reach. Will continue to monitor.
[2022-10-14] MEDS: Jevity 1.5. 1,000 ML Bottle 240 ML GT ×4 (05:14→21:14)
[2022-10-14] MEDS: Menthol/Lanolin/Calamine/Znox 113 GM Tube 1 APPLIC TOPICAL ×2 (05:15→17:23)
--- NOTE | 2022-10-14 05:26 | NURSING ---
Residual for hs and am tube feeds this shift is 0 ml. Split gauze to PEG tube site changed. Site cleansed w/ soap and water, rinsed, and dried. Two split 2x2s applied. Did not secure w/ tape. No drainage noted to site. Pt tolerated well. Will continue to monitor.
[2022-10-14] MEDS: Carbidopa/Levodopa 25/100 Tablet GT ×4 (07:44→21:11)
[2022-10-14 15:53] VITALS: BP 102/67; PULSE 85; RESP 16; TEMP 35.9; O2SAT 96
--- NOTE | 2022-10-14 17:38 | PN.TCU_ITS ---
Subjective Subjective Resident seen, examined for regulatory visit. Spouse present for visit. Resident progressing with therapy, she did steps today. Diet still NPO, ice chips. Spouse noted cloudy urine, but no other urinary symptoms, okay with monitoring. Objective Data Objective Data Vital Signs: Vital Signs Temp Pulse Resp BP Pulse Ox O2 Del Method 96.7 F L 85 16 102/67 96 Room Air 10/14/22 15:53 10/14/22 15:53 10/14/22 15:53 10/14/22 15:53 10/14/22 15:53 10/14/22 15:53 Oxygen Delivery Method Room Air Weight: 44.497 kg Body Mass Index (BMI) 15.3 Intake & Output: Intake and Output for Last 24 Hours 10/12/22 10/13/22 10/14/22 23:59 23:59 23:59 Intake Total 165 / 165 Output Total 300 / 300 650 / 650 300 / 300 Balance -135 / -135 -650 / -650 -300 / -300 Medical Nutrition Assessment Dietitian: Malnutrition Criteria Met Start: 09/25/22 10:43 Freq: Status: Active Protocol: Document 09/30/22 11:54 SLA (Rec: 09/30/22 11:54 SLA [id number]) Nutrition Malnutrition Evidence of Malnutrition Exists No Malnutrition (severe): Chronic Intake Problem Inadequate Oral Intake Etiology related to inability to consume sufficient energy via PO due to dysphagia Signs/Symptoms as evidenced by resident with PEG tube for nutritional needs . Status Active Problem Clinical Problem Chronic Disease or Condition Related Malnutrition Etiology related to dysphagia and inadequate energy intake requiring enteral nutrition support Signs/Symptoms as evidenced by NPO d/t dysphagia and BMI 15.5; noted generalized fat/muscle depletion throughout. Status Active Problem Recommendation Dietitian Recommendations/Changes Adjusted EN to 240mL bolus of Jevity 1.5 4x daily via GT with 165mL feeding tube flush post-bolus d/t spouse report of res getting stomach aches after tf. Continue to follow and monitor for changes in res nutritional status and tf tolerance to increased rate. Lab / Micro Data 10/10/22 05:12 10/10/22 05:12 Physical Exam Const alert General Appearance: cooperative HEENT normocephalic Eyes PERRL and EOMs intact bilaterally Neck supple, no JVD and no carotid bruits Resp normal respiratory effort, normal air movement and clear to auscultation bilaterally Cardio regular rate and regular rhythm GI normal to inspection, nondistended, normoactive bowel sounds, non-tender and non-distended GI Narrative: PEG tube. Extremity normal capillary refill General Extremity: Negative for edema Skin no rashes or lesions noted General Skin Exam: no breakdown Psych affect normal Appearance: appropriate Assessment & Plan Assessment/Plan (1) Debility: (2) Closed right hip fracture: (3) History of basal cell cancer: (4) Chronic liver disease: (5) Parkinson disease: (6) Dysphagia: (7) GERD (gastroesophageal reflux disease): PLAN: Plan 77 year old female with below past medical history hospitalized for right femur fracture, underwent percutaneous pinning right femur fracture 09/14/[address] Jiménez, complicated by acute delirium, admitted to TCU with debility, here for rehabilitation, strengthening, prior to discharge home with . * Debility - PT/OT. * Dysphagia - ST. * Pain - Tylenol 1000mg q6h prn, Tramadol 50mg q6h prn * Bowel - colace 200mg qhs, senokot 2 tablets qhs prn. * Adult immunization - Administer pneumonia vaccine, covid19 vaccine, flu vaccine. * DVT prophylaxis - Done. * Parkinson Disease - Sinemet 25/100mg 1.5 tablets 0800, 2200; Sinemet 25/100mg 2 tablets 1200, 1700. * Dysphagia s/p PEG tube - Jevity 1.5 240ml 4x/day. * GERD - Lansoprazole 30mg qhs. * Nausea - Zofran odt 4mg q8h prn. * Skin irritation - Calmoseptine topical bid. Capacity Capacity Assessment Tool Can the patient make a choice & communicate that choice?: No Can the patient understand benefits, risks and alternatives?: No Can the patient make a logical, rational choice?: No Is the choice the patient makes consistent w/ their values?: No Is there an impending, emergent risk to the patient?: No Does the patient have an Advance Directive?: No Is there a Surrogate Available?: Yes i.e. HCPOA: Yes i.e. close relative (spouse, child, parent, sibling)?: Yes
[2022-10-14 21:04] VITALS: PULSE 74; RESP 14; O2SAT 99
[2022-10-14] MEDS: Docusate Sodium 100 MG/10 ML UDC 200 MG GT (21:11)
[2022-10-14] MEDS: Lansoprazole 15 MG Capsule.DR 30 MG GT (21:11)
[2022-10-14] MEDS: traMADol 50 MG Tablet GT (23:11)
[2022-10-15] MEDS: Jevity 1.5. 1,000 ML Bottle 240 ML GT ×4 (05:37→22:00)
[2022-10-15] MEDS: Menthol/Lanolin/Calamine/Znox 113 GM Tube 1 APPLIC TOPICAL ×2 (05:37→18:01)
[2022-10-15] MEDS: Carbidopa/Levodopa 25/100 Tablet GT ×4 (08:34→22:01)
[2022-10-15 09:32] VITALS: BMI 15.6
--- NOTE | 2022-10-15 10:17 | CASEMGMT ---
Addendum entered by Sara Vieira 10/15/22 14:03: filed the appeal - [id number]. Medical records request received from [facility] and sent to HIM to complete. SW will continue to follow. Original Note: Social Work Insurance issued LCD 10/17, DC 10/18. SW spoke with pt and . Explained appeal rights and goal for DC. and pt discussed options and elected to appeal, then pay privately to remain in TCU until pt can DC home. to provide payment to floor cashier's office for 21 days. Plan: LCD 10/17, appealing, paying privately for 21 days LESLEY Sethi
[2022-10-15 12:51] VITALS: BP 103/61; PULSE 84; RESP 16; TEMP 36.9; O2SAT 96
[2022-10-15 18:08] LABS: Mucous, Urine 0 SEEN /hpf (<or=2+); Red Blood Cells-Urine 0 SEEN /hpf (0-5); Squamous Epithelial Cells - UA 0 SEEN /hpf (5-10)
[2022-10-15 18:16] LABS: Color, Urine Yellow (Yellow); Glucose, Dipstick Normal (Normal); Ketone-Dipstick 5 mg/dl (Negative); Leukocyte Esterase-Dipstick 500 /ul (Negative); Nitrite-Dipstick Negative (Negative); Occult Blood-Urine 50 /ul (Negative); Protein-Dipstick 30 mg/dl (Negative); Urine Bilirubin Dipstick Negative (Negative); Urine Clarity Cloudy (Clear); Urine Urobilinogen Normal (Normal)
[2022-10-15 18:35] LABS: Bacteria 4+ /hpf (None Seen); White Blood Cells >100 SEEN /hpf (0-5)
[2022-10-15] MEDS: Lansoprazole 15 MG Capsule.DR 30 MG GT (22:01)
[2022-10-15] MEDS: Docusate Sodium 100 MG/10 ML UDC 200 MG GT (22:01)
--- NOTE | 2022-10-16 | NURSING ---
Patient awake, attempting to climb out of bed several times, stated she needed a ride somewhere. Currently sitting in common area listening to music. Urine culture currently pending. Will continue to monitor.
[2022-10-16] MEDS: Jevity 1.5. 1,000 ML Bottle 240 ML GT ×4 (04:49→21:45)
[2022-10-16] MEDS: Menthol/Lanolin/Calamine/Znox 113 GM Tube 1 APPLIC TOPICAL ×2 (04:49→18:11)
[2022-10-16] MEDS: Carbidopa/Levodopa 25/100 Tablet GT ×4 (09:10→21:46)
[2022-10-16] MEDS: Ciprofloxacin 250 MG Tablet GT ×2 (09:10→18:10)
--- NOTE | 2022-10-16 15:08 | CASEMGMT ---
Social Work Received call and fax notification from [facility] stating pt lost her appeal. presented to this worker's office and stated he filed a reconsideration. also expressed thinking pt may need a facility after all, as the nights and memory is getting worse. Although, expressed still wanting to try it at home to make that final decision. remains conflicted with allowing others care for pt and him being the primary caregiver. SW provided supportive listening and offered ongoing assistance. appreciative. SW will continue to follow. LESLEY Sethi
[2022-10-16 15:56] VITALS: BP 104/59; PULSE 89; RESP 20; TEMP 36.5; O2SAT 95
[2022-10-16] MEDS: traMADol 50 MG Tablet GT (18:15)
[2022-10-16] MEDS: Docusate Sodium 100 MG/10 ML UDC 200 MG GT (21:45)
[2022-10-16] MEDS: Lansoprazole 15 MG Capsule.DR 30 MG GT (21:46)
[2022-10-16 23:00] VITALS: RESP 16
[2022-10-17] MEDS: Acetaminophen 650 MG/20 ML UDC 1000 MG GT (00:53)
--- NOTE | 2022-10-17 01:00 | NURSING ---
PT RESTLESS AND VERY CONFUSED, PRN ULTRAM AND TYLENOL GIVEN TO HELP SLEEP AND RELAX
[2022-10-17] MEDS: traMADol 50 MG Tablet GT (01:10)
[2022-10-17 05:31] LABS: Absolute Lymphocyte Count 1.09 X10^3/uL (0.83-4.51); Absolute Neutrophil Count 4.6 X10^3/uL (2.0-7.7); Basophil# 0.05 X10^3/uL; Basophil% 0.8 % (0-1); Eosinophil# 0.18 X10^3/uL; Eosinophils% 2.7 % (0-5); Hematocrit 37.8 % (37-47); Hemoglobin 12.3 g/dL (12.0-15.0); Lymphocyte # 1.09 X10^3/ul (0.83-4.51); Lymphocyte % 16.4 % (19-41); Mean Corp Hgb Conc 32.5 g/dL (32-36); Mean Corpuscular Hgb 30.8 pg (27.0-32.0); Mean Corpuscular Volume 94.5 fL (81-99); Mean Platelet Vol. 9.3 fl (6.2-12.0); Monocyte# 0.68 X10^3/uL; Monocyte% 10.2 % (0-10); NRBC Flagged by Analyzer 0 % (0-5); Neutrophil # 4.62 X10^3/uL (2.7-7.7); Neutrophil % 69.4 % (47-70); Platelet Count 176 K/mm3 (150-450); RBC Distribution Width CV 11.5 % (11.6-14.6); RBC Distribution Width SD 39.9 fl (35.1-43.9); White Blood Count 6.7 K/mm3 (4.4-11.0)
[2022-10-17 05:54] LABS: Anion Gap 7 (5-15); BUN 18 mg/dL (7-18); BUN/Creat Ratio 28.1 RATIO (10-20); Calcium,Total 8.5 mg/dL (8.5-10.1); Chloride 94 mmol/L (98-107); Creatinine, Serum 0.64 mg/dL (0.55-1.02); EST Glomerular Filtration Rate 95 mL/min (>60); Est Glom Filt Rate - Afr Amer 115 mL/min (>60); Estimated Creatinine Clearance 32.53 ml/min; Glucose 83 mg/dL (74-106); Potassium 4.5 mmol/L (3.5-5.1); Sodium Level 131 mmol/L (136-145)
[2022-10-17] MEDS: Jevity 1.5. 1,000 ML Bottle 240 ML GT ×4 (06:44→20:07)
[2022-10-17] MEDS: Menthol/Lanolin/Calamine/Znox 113 GM Tube 1 APPLIC TOPICAL ×2 (06:45→17:58)
[2022-10-17] MEDS: Ciprofloxacin 250 MG Tablet GT ×2 (06:45→17:58)
[2022-10-17] MEDS: Carbidopa/Levodopa 25/100 Tablet GT ×4 (09:13→20:07)
[2022-10-17 14:23] VITALS: BP 96/57; PULSE 85; RESP 18; TEMP 36.8; O2SAT 95
[2022-10-17] MEDS: Docusate Sodium 100 MG/10 ML UDC 200 MG GT (20:06)
[2022-10-17] MEDS: MELATONIN 10 MG TABLET PO (20:06)
[2022-10-17] MEDS: Lansoprazole 15 MG Capsule.DR 30 MG GT (20:07)
[2022-10-18 05:01] VITALS: BP 118/73; PULSE 82; RESP 14; TEMP 37.3; O2SAT 99
[2022-10-18] MEDS: Menthol/Lanolin/Calamine/Znox 113 GM Tube 1 APPLIC TOPICAL ×2 (05:05→16:26)
[2022-10-18] MEDS: Ciprofloxacin 250 MG Tablet GT ×2 (05:05→17:38)
[2022-10-18] MEDS: Jevity 1.5. 1,000 ML Bottle 240 ML GT ×4 (05:05→21:51)
[2022-10-18] MEDS: Carbidopa/Levodopa 25/100 Tablet GT ×4 (08:52→21:52)
[2022-10-18 15:50] VITALS: BP 99/66; PULSE 84; RESP 16; TEMP 36.6; O2SAT 95
[2022-10-18] MEDS: Docusate Sodium 100 MG/10 ML UDC 200 MG GT (21:51)
[2022-10-18] MEDS: traMADol 50 MG Tablet GT (21:51)
[2022-10-18] MEDS: Lansoprazole 15 MG Capsule.DR 30 MG GT (21:52)
[2022-10-18] MEDS: MELATONIN 10 MG TABLET PO (21:54)
[2022-10-19] MEDS: Menthol/Lanolin/Calamine/Znox 113 GM Tube 1 APPLIC TOPICAL ×2 (05:04→17:20)
[2022-10-19] MEDS: Jevity 1.5. 1,000 ML Bottle 240 ML GT ×4 (05:04→22:04)
[2022-10-19] MEDS: Ciprofloxacin 250 MG Tablet GT ×2 (05:05→17:19)
[2022-10-19] MEDS: Carbidopa/Levodopa 25/100 Tablet GT ×4 (08:07→22:03)
[2022-10-19 13:30] VITALS: BP 107/66; PULSE 91; RESP 17; TEMP 36.4; O2SAT 92
[2022-10-19 21:54] VITALS: PULSE 80; RESP 16; O2SAT 98
[2022-10-19] MEDS: Lansoprazole 15 MG Capsule.DR 30 MG GT (22:03)
[2022-10-19] MEDS: MELATONIN 10 MG TABLET PO (22:03)
[2022-10-19] MEDS: Docusate Sodium 100 MG/10 ML UDC 200 MG GT (22:03)
[2022-10-20] MEDS: Jevity 1.5. 1,000 ML Bottle 240 ML GT ×4 (05:45→21:41)
[2022-10-20] MEDS: Ciprofloxacin 250 MG Tablet GT ×2 (05:50→17:14)
[2022-10-20] MEDS: Menthol/Lanolin/Calamine/Znox 113 GM Tube 1 APPLIC TOPICAL ×2 (05:51→17:15)
[2022-10-20] MEDS: Carbidopa/Levodopa 25/100 Tablet GT ×4 (07:55→21:41)
[2022-10-20 14:34] VITALS: BP 109/60; PULSE 86; RESP 16; TEMP 37.1; O2SAT 98
[2022-10-20] MEDS: MELATONIN 10 MG TABLET PO (21:41)
[2022-10-20] MEDS: Docusate Sodium 100 MG/10 ML UDC 200 MG GT (21:42)
[2022-10-20] MEDS: Lansoprazole 15 MG Capsule.DR 30 MG GT (21:42)
[2022-10-21] MEDS: Jevity 1.5. 1,000 ML Bottle 240 ML GT ×4 (05:22→22:13)
[2022-10-21] MEDS: Menthol/Lanolin/Calamine/Znox 113 GM Tube 1 APPLIC TOPICAL ×2 (05:22→16:46)
[2022-10-21] MEDS: Ciprofloxacin 250 MG Tablet GT ×2 (05:22→16:46)
[2022-10-21] MEDS: Carbidopa/Levodopa 25/100 Tablet GT ×4 (07:42→22:14)
[2022-10-21 15:20] VITALS: BP 114/66; PULSE 80; RESP 16; TEMP 36.6; O2SAT 96
[2022-10-21] MEDS: Lansoprazole 15 MG Capsule.DR 30 MG GT (22:14)
[2022-10-21] MEDS: Docusate Sodium 100 MG/10 ML UDC 200 MG GT (22:14)
[2022-10-21] MEDS: MELATONIN 10 MG TABLET GT (22:14)
[2022-10-21] MEDS: LORazepam 0.5 MG Tablet GT (22:14)
[2022-10-21 22:31] VITALS: PULSE 88; RESP 16
[2022-10-22] MEDS: Jevity 1.5. 1,000 ML Bottle 240 ML GT ×4 (05:18→20:35)
[2022-10-22] MEDS: Menthol/Lanolin/Calamine/Znox 113 GM Tube 1 APPLIC TOPICAL ×2 (05:18→17:06)
[2022-10-22] MEDS: Ciprofloxacin 250 MG Tablet GT ×2 (05:18→16:59)
[2022-10-22] MEDS: Carbidopa/Levodopa 25/100 Tablet GT ×4 (08:40→22:39)
[2022-10-22 10:58] VITALS: BMI 15.7
[2022-10-22 15:11] VITALS: BP 105/69; PULSE 84; RESP 20; TEMP 36.3; O2SAT 97
[2022-10-22] MEDS: Docusate Sodium 100 MG/10 ML UDC 200 MG GT (20:32)
[2022-10-22] MEDS: traMADol 50 MG Tablet GT (20:32)
[2022-10-22] MEDS: MELATONIN 10 MG TABLET GT (20:33)
[2022-10-22] MEDS: LORazepam 0.5 MG Tablet GT (20:33)
[2022-10-22] MEDS: Lansoprazole 15 MG Capsule.DR 30 MG GT (20:33)
--- NOTE | 2022-10-22 22:00 | NURSING ---
Patient given ativan at hs for anxiety and effective. This nurse entered room at the beginning of the shift and she kept telling me to go to the garage and anxiety would not lessen with interventions. On atb for uti and no adverse effects. Currently resting in bed with eyes closed.
[2022-10-22] MEDS: Nystatin Powder 15gm Bottle 1 APPLIC TOPICAL (22:39)
[2022-10-23] MEDS: Jevity 1.5. 1,000 ML Bottle 240 ML GT ×4 (04:54→21:31)
[2022-10-23] MEDS: Menthol/Lanolin/Calamine/Znox 113 GM Tube 1 APPLIC TOPICAL ×2 (04:55→18:37)
[2022-10-23] MEDS: Ciprofloxacin 250 MG Tablet GT (05:08)
[2022-10-23] MEDS: Carbidopa/Levodopa 25/100 Tablet GT ×4 (07:37→21:31)
[2022-10-23] MEDS: Nystatin Powder 15gm Bottle 1 APPLIC TOPICAL ×2 (07:42→21:32)
--- NOTE | 2022-10-23 08:18 | NURSING ---
Off unit for Dr. Olivera transporting.
--- NOTE | 2022-10-23 11:30 | NURSING ---
Pt returned from Dr. rai with Dr. Jiménez no new orders.
[2022-10-23 14:43] VITALS: BP 109/67; PULSE 94; RESP 18; TEMP 36.7; O2SAT 95
--- NOTE | 2022-10-23 19:31 | NURSING ---
Residual checked prior to tube feed 0ml noted. Pt tolerated well.
[2022-10-23] MEDS: LORazepam 0.5 MG Tablet 0.25 MG GT (21:27)
[2022-10-23] MEDS: MELATONIN 10 MG TABLET GT (21:31)
[2022-10-23] MEDS: Docusate Sodium 100 MG/10 ML UDC 200 MG GT (21:31)
[2022-10-23] MEDS: Lansoprazole 15 MG Capsule.DR 30 MG GT (21:31)
[2022-10-23 21:47] VITALS: PULSE 82; RESP 14; O2SAT 94
[2022-10-24 05:59] LABS: Absolute Lymphocyte Count 0.87 X10^3/uL (0.83-4.51); Absolute Neutrophil Count 3.8 X10^3/uL (2.0-7.7); Basophil# 0.04 X10^3/uL; Basophil% 0.7 % (0-1); Eosinophil# 0.14 X10^3/uL; Eosinophils% 2.6 % (0-5); Hematocrit 39.1 % (37-47); Hemoglobin 12.6 g/dL (12.0-15.0); Lymphocyte # 0.87 X10^3/ul (0.83-4.51); Lymphocyte % 16.1 % (19-41); Mean Corp Hgb Conc 32.2 g/dL (32-36); Mean Corpuscular Hgb 31.1 pg (27.0-32.0); Mean Corpuscular Volume 96.5 fL (81-99); Mean Platelet Vol. 9.5 fl (6.2-12.0); Monocyte# 0.55 X10^3/uL; Monocyte% 10.2 % (0-10); NRBC Flagged by Analyzer 0 % (0-5); Neutrophil # 3.77 X10^3/uL (2.7-7.7); Platelet Count 198 K/mm3 (150-450); RBC Distribution Width CV 11.9 % (11.6-14.6); RBC Distribution Width SD 41.7 fl (35.1-43.9); Red Blood Count 4.05 M/mm3 (4.2-5.4); White Blood Count 5.4 K/mm3 (4.4-11.0)
[2022-10-24 06:24] LABS: Anion Gap 3 (5-15); BUN 16 mg/dL (7-18); BUN/Creat Ratio 22.9 RATIO (10-20); Calcium,Total 9.3 mg/dL (8.5-10.1); Chloride 98 mmol/L (98-107); EST Glomerular Filtration Rate 86 mL/min (>60); Est Glom Filt Rate - Afr Amer 104 mL/min (>60); Estimated Creatinine Clearance 32.96 ml/min; Glucose 86 mg/dL (74-106); Potassium 4.1 mmol/L (3.5-5.1); Sodium Level 133 mmol/L (136-145)
[2022-10-24] MEDS: Jevity 1.5. 1,000 ML Bottle 240 ML GT ×4 (06:29→21:55)
[2022-10-24] MEDS: Menthol/Lanolin/Calamine/Znox 113 GM Tube 1 APPLIC TOPICAL ×2 (06:29→18:06)
[2022-10-24] MEDS: Carbidopa/Levodopa 25/100 Tablet GT ×4 (08:15→21:55)
[2022-10-24] MEDS: Nystatin Powder 15gm Bottle 1 APPLIC TOPICAL ×2 (08:21→22:00)
[2022-10-24 14:54] VITALS: BP 102/50; PULSE 83; RESP 14; TEMP 36.6; O2SAT 96
[2022-10-24 20:17] VITALS: PULSE 95; RESP 16; O2SAT 97
[2022-10-24] MEDS: Docusate Sodium 100 MG/10 ML UDC 200 MG GT (21:54)
[2022-10-24] MEDS: Lansoprazole 15 MG Capsule.DR 30 MG GT (21:54)
[2022-10-24] MEDS: MELATONIN 10 MG TABLET GT (21:55)
[2022-10-24] MEDS: LORazepam 0.5 MG Tablet 0.25 MG GT (21:55)
[2022-10-25] MEDS: Menthol/Lanolin/Calamine/Znox 113 GM Tube 1 APPLIC TOPICAL ×2 (04:31→18:39)
[2022-10-25] MEDS: Jevity 1.5. 1,000 ML Bottle 240 ML GT ×4 (04:32→20:48)
[2022-10-25] MEDS: Carbidopa/Levodopa 25/100 Tablet GT ×4 (09:53→21:01)
--- NOTE | 2022-10-25 11:07 | PCM.PN.DRR ---
TCU RX Drug Regimen Review Subjective/Objective Subjective/Objective: Subjective: TCU monthly medication regimen review. Patient was admitted to TCU 09/14/22 s/p femur fracture. Objective: Allergies Sulfa (Sulfonamide Antibiotics) [sulfa drugs] Allergy (Verified 09/18/22 14:05) Rash shrimp Adverse Reaction (Verified 09/18/22 14:05) Nausea Current Medications Generic Name Dose Route Start Last Admin Trade Name Freq PRN Reason Stop Dose Admin Acetaminophen 1,000 mg 09/23/22 17:22 10/17/22 00:53 Acetaminophen 650 Mg/20 Ml Udc GT 1,000 mg Q6H PRN Administration Pain Score 1-3 Calamine/Phenol 1 applic 10/08/22 18:00 10/25/22 04:31 Menthol/Lanolin/Calamine/Znox 113 Gm Tube TOPICAL 1 applic BID CHERI Administration Protocol Carbidopa/Levodopa 1.5 tablet 09/18/22 22:00 10/25/22 09:53 Carbidopa/Levodopa 25/100 Tablet GT 1.5 tablet 0800,2200 CHERI Administration Carbidopa/Levodopa 2 tablet 09/18/22 17:00 10/24/22 18:06 Carbidopa/Levodopa 25/100 Tablet GT 2 tablet 1200,1700 CHERI Administration Docusate Sodium 200 mg 09/18/22 22:00 10/24/22 21:54 Docusate Sodium 100 Mg/10 Ml Udc GT 200 mg QHS CHERI Administration Docusate Sodium 100 mg 10/24/22 09:55 Docusate Sodium 100 Mg Capsule PO BID PRN CONSTIPATION Enteral Nutritional Formula 240 ml 09/30/22 11:38 10/25/22 04:32 Jevity 1.5. 1,000 Ml Bottle GT 240 ml 0500,1100,1700,2000 CHERI Administration Sodium Chloride 250 mls @ 15 mls/hr 10/08/22 08:57 IV .[id number] PRN Saline Flush Sodium Chloride 250 mls @ 15 mls/hr 10/08/22 08:58 IV .[id number] PRN Additional IVPB Infusion Lansoprazole 30 mg 09/18/22 22:00 10/24/22 21:54 Lansoprazole 15 Mg Capsule.Dr GT 30 mg QHS CHERI Administration Lorazepam 0.25 mg 10/23/22 07:44 10/24/22 21:55 Lorazepam 0.5 Mg Tablet GT 0.25 mg Q8H PRN PRN Administration ANXIETY/RESTLESSNESS/SLEEP Melatonin 10 mg 10/21/22 22:00 10/24/22 21:55 Melatonin 10 Mg Tablet GT 10 mg QHS CHERI Administration Nystatin 1 applic 10/22/22 22:00 10/24/22 22:00 Nystatin Powder 15gm Bottle TOPICAL 1 applic 1000,2200 CHERI Administration Protocol Ondansetron HCl 4 mg 10/08/22 08:56 Ondansetron Odt 4 Mg Tablet PO Q8H PRN PRN NAUSEA/VOMITING Senna 2 tablet 10/08/22 08:57 Senna Tablet GT QHS PRN stool softener Sodium Chloride 10 - 40 ml 10/08/22 08:58 0.9% Saline Lock 10 Ml Syringe IV UD PRN SALINE FLUSH Tramadol HCl 50 mg 10/08/22 08:57 10/22/22 20:32 Tramadol 50 Mg Tablet GT 50 mg Q6H PRN PRN Administration Pain Score 4-5 Problem List (Updated 09/18/22 @ 21:[address] George Jacob MD) GERD (gastroesophageal reflux disease) (Acute) Dysphagia (Acute) Parkinson disease (Acute) Chronic liver disease (Chronic) History of basal cell cancer (Acute) Closed right hip fracture (Acute) Debility (Acute) Vital Signs Temp Pulse Resp BP Pulse Ox O2 Del Method 97.9 F 95 16 102/50 L 97 Room Air 10/24/22 14:54 10/24/22 20:17 10/24/22 20:17 10/24/22 14:54 10/24/22 20:17 10/24/22 20:17 Oxygen Delivery Method Room Air Weight: 45.767 kg Body Mass Index (BMI) 15.7 Sodium 133 mmol/L (136-145) L 10/24/22 05:44 Potassium 4.1 mmol/L (3.5-5.1) 10/24/22 05:44 Chloride 98 mmol/L (98-107) 10/24/22 05:44 Carbon Dioxide 32.0 mmol/L (21.0-32.0) 10/24/22 05:44 Anion Gap 3 (5-15) L 10/24/22 05:44 BUN 16 mg/dL (7-18) 10/24/22 05:44 Creatinine 0.70 mg/dL (0.55-1.02) 10/24/22 05:44 Est GFR (MDRD) Af Amer 104 mL/min (>60) 10/24/22 05:44 Est GFR (MDRD) Non-Af 86 mL/min (>60) 10/24/22 05:44 BUN/Creatinine Ratio 22.9 RATIO (10-20) H 10/24/22 05:44 Glucose 86 mg/dL (74-106) 10/24/22 05:44 Assessment/Plan: 1. Pain: Tylenol 1000mg GT Q6h PRN Pain 1-3, Tramadol 50mg PO Q6h PRN Pain 4-10. Please continue to monitor for S/S increased/decreased S/S pain, PRN medication usage, oversedation with tramadol usage. -The patient has only used 5 doses of Tramadol and 8 doses PRN Tylenol over the past month. Patient's pain appears to be controlled at this time, continue PRN therapy. 2. Bowel: docusate liquid 200mg GT QHS, senna 2T GT QHS PRN constipation, docusate 100mg BID PRN. Please continue to monitor increased/decreased diarrhea, PRN medication use. Resident has not had any PRN doses. Last documented bowel movement was 10/17/22. 3. Parkinson Disease: Sinemet 25/100mg 1.5 T GT @ 0800, 2200; Sinemet 25/100mg 2 T GT @ 1200, 1700. Please continue to monitor for s/s of dyskinesia, akinesia, GI side effects. 4. GERD: lansoprazole 30mg GT QHS. Please continue to monitor for s/s of GERD, diarrhea/C. difficile infections (BEERs medication). 5. Nausea: Zofran 4mg GT Q8h PRN. Please continue to monitor for medication effectiveness, headaches, PRN medication usage. -The patient has not used any PRN medication doses at this time. 6. Insomnia: Ativan (see below), melatonin 10mg GT QHS. Please continue to monitor for medication effectiveness, oversedation. Please monitor close for oversedation given larger dose of melatonin and PRN Ativan also being administered, thank you. 7. Skin Integrity: Nystatin topically BID, Calmoseptine topically BID. Please continue to monitor for skin irritation, breakdown, redness, or ulcer development. Assessment/Plan for indications treated with psychotropic medications: 1. Anxiety/ Restlessness: Ativan 0.25mg GT Q8h PRN. Please continue to monitor closely for PRN medication, oversedation with use. Please consider a GDR by 03/2023 if clinically indicated, thank you. -The patient has used 2 medication doses since started, both at bedtime. Medical chart and medication regimen reviewed. The following medication irregularities or issues were identified: 1. Anxiety/ Restlessness: Ativan 0.25mg GT Q8h PRN. Please consider a GDR by 03/2023 if clinically indicated, thank you. Date Date of Note:: 10/25/22
[2022-10-25] MEDS: Nystatin Powder 15gm Bottle 1 APPLIC TOPICAL ×2 (11:47→21:02)
[2022-10-25 15:54] VITALS: BP 94/55; PULSE 88; RESP 16; TEMP 36.6; O2SAT 96
[2022-10-25] MEDS: Docusate Sodium 100 MG/10 ML UDC 200 MG GT (20:48)
[2022-10-25] MEDS: LORazepam 0.5 MG Tablet 0.25 MG GT (20:50)
[2022-10-25] MEDS: Lansoprazole 15 MG Capsule.DR 30 MG GT (21:01)
[2022-10-25] MEDS: MELATONIN 10 MG TABLET GT (21:01)
[2022-10-25 22:00] VITALS: PULSE 85; RESP 16; O2SAT 96
[2022-10-26] MEDS: Jevity 1.5. 1,000 ML Bottle 240 ML GT ×4 (04:47→20:39)
[2022-10-26] MEDS: Menthol/Lanolin/Calamine/Znox 113 GM Tube 1 APPLIC TOPICAL ×2 (04:47→18:09)
[2022-10-26] MEDS: Carbidopa/Levodopa 25/100 Tablet GT ×4 (08:46→20:37)
[2022-10-26] MEDS: Nystatin Powder 15gm Bottle 1 APPLIC TOPICAL ×2 (11:26→20:38)
[2022-10-26 14:17] VITALS: BP 107/56; PULSE 89; RESP 14; TEMP 36.2; O2SAT 96
[2022-10-26] MEDS: Docusate Sodium 100 MG/10 ML UDC 200 MG GT (20:36)
[2022-10-26] MEDS: Lansoprazole 15 MG Capsule.DR 30 MG GT (20:36)
[2022-10-26] MEDS: MELATONIN 10 MG TABLET GT (20:39)
[2022-10-27] MEDS: Jevity 1.5. 1,000 ML Bottle 240 ML GT ×4 (05:11→21:50)
[2022-10-27] MEDS: Menthol/Lanolin/Calamine/Znox 113 GM Tube 1 APPLIC TOPICAL ×2 (08:39→17:50)
[2022-10-27] MEDS: Carbidopa/Levodopa 25/100 Tablet GT ×4 (08:39→21:53)
[2022-10-27] MEDS: Nystatin Powder 15gm Bottle 1 APPLIC TOPICAL ×2 (08:40→21:52)
[2022-10-27 14:13] VITALS: BP 153/78; PULSE 86; RESP 18; TEMP 36.5; O2SAT 98
--- NOTE | 2022-10-27 20:50 | NURSING ---
Paged Dr. Jacob w/ immediate return call. Updated no additional orders for BMP and CBC w/ Diff since most recent set drawn on 10/24. Na+ was 133 at that time. New orders received and read back to have CBC w/ Diff and BMP drawn in the am.
[2022-10-27] MEDS: Docusate Sodium 100 MG/10 ML UDC 200 MG GT (21:50)
[2022-10-27] MEDS: Lansoprazole 15 MG Capsule.DR 30 MG GT (21:51)
[2022-10-27] MEDS: LORazepam 0.5 MG Tablet 0.25 MG GT (21:51)
[2022-10-27] MEDS: MELATONIN 10 MG TABLET GT (21:52)
[2022-10-28] MEDS: Jevity 1.5. 1,000 ML Bottle 240 ML GT ×4 (05:01→21:34)
[2022-10-28] MEDS: Menthol/Lanolin/Calamine/Znox 113 GM Tube 1 APPLIC TOPICAL ×2 (05:01→18:08)
[2022-10-28 05:34] LABS: Absolute Lymphocyte Count 0.97 X10^3/uL (0.83-4.51); Absolute Neutrophil Count 3.1 X10^3/uL (2.0-7.7); Basophil# 0.04 X10^3/uL; Basophil% 0.8 % (0-1); Eosinophil# 0.32 X10^3/uL; Eosinophils% 6.6 % (0-5); Hematocrit 41.8 % (37-47); Hemoglobin 13.3 g/dL (12.0-15.0); Lymphocyte # 0.97 X10^3/ul (0.83-4.51); Mean Corp Hgb Conc 31.8 g/dL (32-36); Mean Corpuscular Hgb 31.1 pg (27.0-32.0); Mean Corpuscular Volume 97.7 fL (81-99); Mean Platelet Vol. 9.1 fl (6.2-12.0); Monocyte# 0.39 X10^3/uL; Monocyte% 8.1 % (0-10); NRBC Flagged by Analyzer 0 % (0-5); Neutrophil % 64.1 % (47-70); Platelet Count 210 K/mm3 (150-450); RBC Distribution Width SD 43.5 fl (35.1-43.9); Red Blood Count 4.28 M/mm3 (4.2-5.4); White Blood Count 4.8 K/mm3 (4.4-11.0)
[2022-10-28 05:56] LABS: Anion Gap 5 (5-15); BUN 22 mg/dL (7-18); Calcium,Total 9.2 mg/dL (8.5-10.1); Chloride 100 mmol/L (98-107); Creatinine, Serum 0.69 mg/dL (0.55-1.02); EST Glomerular Filtration Rate 88 mL/min (>60); Est Glom Filt Rate - Afr Amer 106 mL/min (>60); Estimated Creatinine Clearance 32.96 ml/min; Glucose 121 mg/dL (74-106); Potassium 4.6 mmol/L (3.5-5.1); Sodium Level 137 mmol/L (136-145)
[2022-10-28] MEDS: Carbidopa/Levodopa 25/100 Tablet GT ×4 (08:42→21:35)
[2022-10-28] MEDS: Nystatin Powder 15gm Bottle 1 APPLIC TOPICAL ×2 (08:47→22:04)
[2022-10-28 13:28] VITALS: BP 117/66; PULSE 83; RESP 16; TEMP 36.1; O2SAT 98
[2022-10-28 20:00] VITALS: PULSE 102; RESP 16; O2SAT 97
[2022-10-28] MEDS: Docusate Sodium 100 MG/10 ML UDC 200 MG GT (21:35)
[2022-10-28] MEDS: MELATONIN 10 MG TABLET GT (21:35)
[2022-10-28] MEDS: Lansoprazole 15 MG Capsule.DR 30 MG GT (21:35)
[2022-10-28] MEDS: LORazepam 0.5 MG Tablet 0.25 MG GT (21:42)
[2022-10-29] MEDS: Jevity 1.5. 1,000 ML Bottle 240 ML GT ×4 (05:15→20:55)
[2022-10-29] MEDS: Menthol/Lanolin/Calamine/Znox 113 GM Tube 1 APPLIC TOPICAL ×2 (05:16→17:11)
[2022-10-29] MEDS: Carbidopa/Levodopa 25/100 Tablet GT ×4 (09:13→21:05)
[2022-10-29] MEDS: Nystatin Powder 15gm Bottle 1 APPLIC TOPICAL ×2 (09:13→21:06)
[2022-10-29 14:52] VITALS: BP 97/58; PULSE 89; RESP 14; TEMP 36.5; O2SAT 96
[2022-10-29 15:00] VITALS: BMI 15.5
--- NOTE | 2022-10-29 16:18 | CASEMGMT ---
Social Work Insurance issued LCD 10/31, DC 11/01. SW spoke with pt and at bedside. Spent extended time with answering questions and providing explanation regarding insurance coverage and private pay. concluded he will speak with treating ACCESS REP tomorrow after stairwell exercise is completed to assist in making determination on DC home vs remain private pay for further therapy. expressed pt wants to go home, and he will take pt home regardless to see how things go. If unsuccessful, then would transition himself and pt to [place], as SW offered to assist with that transition from TCU. expressed appreciation for time and assistance and will notify this worker tomorrow. SW will continue to follow. PLAN: DC plan unknown - remain private pay or DC home 11/01 LESLEY Sethi
--- NOTE | 2022-10-29 18:38 | NURSING ---
Tube residual checked prior to tube feed ml of residual noted.
--- NOTE | 2022-10-29 20:50 | NURSING ---
0ml residual. no issues with patients peg tube, no complaints
[2022-10-29] MEDS: MELATONIN 10 MG TABLET GT (21:05)
[2022-10-29] MEDS: Lansoprazole 15 MG Capsule.DR 30 MG GT (21:05)
[2022-10-29] MEDS: LORazepam 0.5 MG Tablet 0.25 MG GT (21:05)
[2022-10-29] MEDS: Docusate Sodium 100 MG/10 ML UDC 200 MG GT (21:05)
--- NOTE | 2022-10-30 06:20 | NURSING ---
0ml residual. no issues with patients peg tube, no complaints
[2022-10-30] MEDS: Menthol/Lanolin/Calamine/Znox 113 GM Tube 1 APPLIC TOPICAL ×2 (06:23→17:51)
[2022-10-30] MEDS: Jevity 1.5. 1,000 ML Bottle 240 ML GT ×4 (06:23→21:46)
[2022-10-30] MEDS: Carbidopa/Levodopa 25/100 Tablet GT ×4 (07:36→21:42)
[2022-10-30] MEDS: Nystatin Powder 15gm Bottle 1 APPLIC TOPICAL ×2 (07:58→21:44)
[2022-10-30 15:01] VITALS: BP 95/56; PULSE 80; RESP 20; TEMP 36.2; O2SAT 97
--- NOTE | 2022-10-30 15:51 | CASEMGMT ---
Social Work Spoke with to follow up on DC plans. After some discussion, decided to take pt home 11/01. SW offered HHC vs OP therapy. declined stating he wants to get into a routine with the pt first. SW educated to contacting pt's PCP for orders, if elected after DC. SW inquired about DME needs. requesting 3-in-1 commode and transport w/c. to purchase FWW. SW faxed referral to [facility] [place]. Plan: DC home with 11/01, BSC, transport w/c Sara Vieira, [employer]
--- NOTE | 2022-10-30 19:30 | DS.PCM_ITS ---
Providers Date of Admission: 09/18/22 Primary Care Physician: Dr. Delfino Valderrama MD Reason For Visit: RIGHT HIP FRACTURE Diagnosis Discharge Diagnosis (1) Debility: Status: Acute Code(s): R53.81 - Other malaise (2) Closed right hip fracture: Status: Acute Code(s): S72.001A - Fracture of unspecified part of neck of right femur, initial encounter for closed fracture (3) History of basal cell cancer: Status: Acute Code(s): Z85.828 - Personal history of other malignant neoplasm of skin (4) Chronic liver disease: Status: Chronic Code(s): K76.9 - Liver disease, unspecified (5) Parkinson disease: Status: Acute Code(s): G20 - Parkinson's disease (6) Dysphagia: Status: Acute Code(s): R13.10 - Dysphagia, unspecified (7) GERD (gastroesophageal reflux disease): Status: Acute Code(s): K21.9 - Gastro-esophageal reflux disease without esophagitis Plan 77 year old female with below past medical history hospitalized for right femur fracture, underwent percutaneous pinning right femur fracture 09/14/[address] Jiménez, complicated by acute delirium, admitted to TCU with debility, here for rehabilitation, strengthening, prior to discharge home with . * Debility - PT/OT. * Dysphagia - ST. * Pain - Tylenol 1000mg q6h prn, Tramadol 50mg q6h prn * Bowel - colace 200mg qhs, senokot 2 tablets qhs prn. * Adult immunization - Administer pneumonia vaccine, covid19 vaccine, flu vaccine. * DVT prophylaxis - Done. * Parkinson Disease - Sinemet 25/100mg 1.5 tablets 0800, 2200; Sinemet 25/100mg 2 tablets 1200, 1700. * Dysphagia s/p PEG tube - Jevity 1.5 240ml 4x/day. * GERD - Lansoprazole 30mg qhs. * Nausea - Zofran odt 4mg q8h prn. * Skin irritation - Calmoseptine topical bid. Medications at Discharge Home Medications Jevity 1.5 Apolinar 240 ml G-tube Q6H tube feeding 09/18/22 carbidopa 25 mg-levodopa 100 mg tablet 1.5 tab feeding tube 0800,2200 parkinsons 09/18/22 carbidopa 25 mg-levodopa 100 mg tablet 2 tab G-tube 1200,1700 #0 tabs 10/30/22 lansoprazole 15 mg capsule,delayed release 30 mg (2 x 15 mg) G-tube QHS #0 caps 10/30/22 Hospital Course Operations - (See below.) Procedures None Summary of Care Provided Minutes Spent on Discharge: 35 Hospital Course: 77 year old female with below past medical history hospitalized for right femur fracture, underwent percutaneous pinning right femur fracture 09/14/[address] Jiménez, complicated by acute delirium, admitted to TCU with debility, here for rehabilitation, strengthening, prior to discharge home with . Discharge home with 11/01/2022, Beside commode, transport wheelchair. Physical Exam Const alert General Appearance: cooperative HEENT normocephalic Eyes PERRL and EOMs intact bilaterally Neck supple, no JVD and no carotid bruits Resp normal respiratory effort, normal air movement and clear to auscultation bilaterally Cardio regular rate and regular rhythm GI normal to inspection, nondistended, normoactive bowel sounds, non-tender and non-distended Extremity normal capillary refill General Extremity: Negative for edema Skin no rashes or lesions noted General Skin Exam: no breakdown Psych affect normal Appearance: appropriate Medical Records Data Medical Nutrition Assessment Dietitian: Malnutrition Criteria Met Start: 09/25/22 10:43 Freq: Status: Active Protocol: Document 10/23/22 11:54 LIA (Rec: 10/23/22 11:54 [facility] [id number]) Nutrition Malnutrition Evidence of Malnutrition Exists Yes Malnutrition (severe): Chronic Evidenced By Suboptimal Energy Intake ( Moderate),Weight Loss (Severe) ,Physical Changes (Severe) Intake Problem Inadequate Oral Intake Etiology related to inability to consume sufficient energy via PO due to dysphagia Signs/Symptoms as evidenced by resident with PEG tube for nutritional needs . Status Active Problem Clinical Problem Chronic Disease or Condition Related Malnutrition Etiology related to dysphagia and inadequate energy intake requiring enteral nutrition support Signs/Symptoms as evidenced by NPO d/t dysphagia and BMI 15.8; noted generalized fat/muscle depletion throughout. Status Active Problem Recommendation Dietitian Recommendations/Changes Continue EN 240mL bolus of Jevity 1.5 4x daily via GT with 165mL feeding tube flush post-bolus Continue gravity method for infusion instead of syringe Continue to follow and monitor for changes in res nutritional status and tf tolerance to increased rate. Rec Eduard bid via PEG if skin status worsens. Weight / BMI Weight Weight: 45.087 kg Body Mass Index (BMI) 15.5 ABG / Lab / Microbiology Data 10/28/22 05:22 10/28/22 05:22 Microbiology: Microbiology 10/15/22 18:05 Urine, Clean Catch Urine Culture - Final Escherichia coli D/C Instructions Discharge Diet: - (Tubefeeding.) Discharge Activity: Return to Normal Activity, May Shower and Use Walker Weight Bearing Status: Weight bearing as tolerated Call your doctor if you observe: Fever of 101 or Higher, Inability to urinate, Inability to have a bowel movement, Shortness of breath, Dizziness, Fainting spells, Swelling in the ankles, Chest pain and Uncontrolled pain Additional Instructions: Discharge home with 11/01/2022, Beside commode, transport wheelchair. Please Follow Up With: Dr. Jiménez When: As scheduled. Meaningful Use Info Meaningful Use Diagnoses (Choose all that apply): None applicable Discharge Plan Admission Admit Date/Time: 09/18/22 13:35 Primary Reason for Your Visit: Debility. Attending Provider: George Jacob Chi Primary Care Provider: Delfino Valderrama Instructions Additional Instructions / Restrictions: Discharge home with 11/01/2022, Beside commode, transport wheelchair. Discharge Orders/Prescriptions Prescriptions: New lansoprazole 15 mg Capsule,Delayed Release(Dr/Ec) 30 mg G-tube QHS Qty: 0 0RF carbidopa-levodopa 25-100 mg Tablet 2 tab G-tube 1200,1700 Qty: 0 0RF Continued carbidopa-levodopa 25-100 mg Tablet 1.5 tab feeding tube 0800,2200 Jevity 1.5 Apolinar 240 ml G-tube Q6H Rx Instructions: 170cc water flush after bolus feeds Discontinued docusate sodium 50 mg/5 mL Liquid 200 mg feeding tube QHS acetaminophen 325 mg Tablet 650 mg feeding tube Q6H PRN (Reason: pain/fever) enoxaparin 40 mg/0.4 mL Syringe 40 mg SUBCUT DAILY sennosides [senna] 8.8 mg/5 mL Syrup 10 ml PO QHS PRN (Reason: stool softener) insulin lispro 100 unit/mL Insulin Pen 0 - 12 sliding scale dose SUBCUT TID carbidopa-levodopa 25-100 mg Tablet 2 tab feeding tube 1200,1700 Referrals / Follow Up: Delfino Valderrama MD [Primary Care Provider] - 11/13/22 8:30 am Disposition Disposition (needs filled in before D/C Order can be placed): Home, Self Care
[2022-10-30] MEDS: LORazepam 0.5 MG Tablet 0.25 MG GT (21:41)
[2022-10-30] MEDS: MELATONIN 10 MG TABLET GT (21:42)
[2022-10-30] MEDS: Lansoprazole 15 MG Capsule.DR 30 MG GT (21:44)
[2022-10-30] MEDS: Docusate Sodium 100 MG/10 ML UDC 200 MG GT (21:45)
[2022-10-31] MEDS: Jevity 1.5. 1,000 ML Bottle 240 ML GT ×4 (05:18→19:45)
[2022-10-31] MEDS: Menthol/Lanolin/Calamine/Znox 113 GM Tube 1 APPLIC TOPICAL ×2 (05:26→17:01)
[2022-10-31] MEDS: Carbidopa/Levodopa 25/100 Tablet GT ×4 (08:18→21:37)
--- NOTE | 2022-10-31 13:03 | MDS.RN ---
Pain interview for MDS completed.
--- NOTE | 2022-10-31 13:05 | MDS.RN ---
Pain interview for mds completed.
--- NOTE | 2022-10-31 13:30 | CASEMGMT ---
Social Work BIMS (02/12) and PHQ-9 () completed for MDS assessment. Sara Vieira MSW TRANSITION ASSISTANT
[2022-10-31 14:25] VITALS: BP 103/62; PULSE 87; RESP 14; TEMP 36.7; O2SAT 94
--- NOTE | 2022-10-31 18:32 | NURSING ---
Residual checked prior to tube feed 0ml of residual noted.
[2022-10-31] MEDS: LORazepam 0.5 MG Tablet 0.25 MG GT (19:44)
--- NOTE | 2022-10-31 19:56 | NURSING ---
Patient presents in recliner holding personal cellphone, restless, anxious at this time, tearful packing to go to [place]. Confused per usual. 1:1 provided, Ineffective. Non-pharmacologic interventions ineffective, PRN Ativan administered at this time as ordered for anxiety. Call light and personal belongings within reach. Declines to watch television or listen to music. Alarm on per order and functioning properly.
[2022-10-31 20:07] VITALS: PULSE 94; RESP 18; O2SAT 96
[2022-10-31] MEDS: Docusate Sodium 100 MG/10 ML UDC 200 MG GT (21:35)
[2022-10-31] MEDS: Lansoprazole 15 MG Capsule.DR 30 MG GT (21:35)
[2022-10-31] MEDS: Nystatin Powder 15gm Bottle 1 APPLIC TOPICAL (21:37)
[2022-10-31] MEDS: MELATONIN 10 MG TABLET GT (21:37)
[2022-11-01] MEDS: Jevity 1.5. 1,000 ML Bottle 240 ML GT ×2 (05:40→11:19)
[2022-11-01] MEDS: Menthol/Lanolin/Calamine/Znox 113 GM Tube 1 APPLIC TOPICAL (05:47)
--- NOTE | 2022-11-01 05:49 | NURSING ---
4 mL clear yellow colored residual via peg this AM, no c/o GI distress. Bolus feed and flush continue per order. Call light in reach. No anxiety or restlessness observed or reported.
[2022-11-01] MEDS: Carbidopa/Levodopa 25/100 Tablet GT ×2 (08:21→12:59)
[2022-11-01] MEDS: Nystatin Powder 15gm Bottle 1 APPLIC TOPICAL (11:43)
[2022-11-01 14:55] VITALS: BP 94/60; PULSE 88; RESP 16; TEMP 36; O2SAT 96
== END 2022-11-01 15:06 | disposition home or self-care (01) | DRG 561 ==
PROVIDERS: Admitting Provider Family Medicine Geriatric Medicine; PCP Internal Medicine; Referring Provider Family Medicine Geriatric Medicine; Visit Provider Family Medicine Geriatric Medicine
DX: S72.001D Fracture of unspecified part of neck of right femur, subsequent encounter for closed fracture with routine healing (principal); G20 Parkinson's disease; Z79.4 Long term (current) use of insulin; K21.9 Gastro-esophageal reflux disease without esophagitis; K76.9 Liver disease, unspecified; W19.XXXD Unspecified fall, subsequent encounter; Z87.891 Personal history of nicotine dependence; R13.10 Dysphagia, unspecified; Z79.01 Long term (current) use of anticoagulants; Z79.899 Other long term (current) drug therapy; Z23 Encounter for immunization
CPT/HCPCS: 36415; 80048; 80061; 81001; 82306; 82962; 83930; 83935; 84300; 85025; 87077; 87086; 87088; 87186; 90677; 92507; 92523; 92526; 92610; 97110; 97112; 97116; 97162; 97166; 97530; 97535; 97802; 97803; G0009

== ENCOUNTER 2023-02-04 13:10 | Inpatient (IN) | payer MEDICARE, SELFPAY ==
[2023-02-04 13:18] VITALS: BP 124/62; PULSE 99; RESP 18; TEMP 36.2; O2SAT 94; BMI 15.6
--- NOTE | 2023-02-04 15:19 | HP.PCM_ITS ---
HPI - General General Date of Admission: 02/04/23 Date of Service: 02/04/23 Chief Complaint: Here for rehabilitation. HPI Narrative 01/31/2023 ANA HOLLIS, is a 77 Female who presents with following: Admit to [facility]. Fall at home, tripped and fell, fell on left side, left sided rib pain Patient has Parkinson Disease, was not using her assistive device. Left posterior overlapping rib fractures, 4-6. Mild ulnar deviation distal phalanx index finger, chronic, not acute. Rib block offered, patient declined. CT head negative, CT cervical spine negative. 02/04/2023 Admit to TCU with debility, here for rehabilitation, strengthening, prior to discharge home with . [facility] Medical History Chronic liver disease Closed right hip fracture Debility Dysphagia GERD (gastroesophageal reflux disease) History of basal cell cancer History of gastrostomy tube placement Parkinson disease Home Medications Jevity 1.5 Apolinar 240 ml G-tube Q6H tube feeding 09/18/22 [History Last Taken Unknown] carbidopa 25 mg-levodopa 100 mg tablet 1.5 tab feeding tube 0800,2200 parkinsons 09/18/22 [History Last Taken Unknown] carbidopa 25 mg-levodopa 100 mg tablet 2 tab G-tube 1200,1700 parkinsons #0 tabs 10/30/22 [Rx Last Taken Unknown] lansoprazole 15 mg capsule,delayed release 30 mg (2 x 15 mg) G-tube QHS #0 caps 10/30/22 [Rx Last Taken Unknown] acetaminophen 325 mg capsule 650 mg PO Q6H PRN pain 02/04/23 [History Last Taken 02/04/23] carbidopa 25 mg-levodopa 100 mg tablet 1.5 tab PO 4X/DAY parkinsons 02/04/23 [History Last Taken 02/04/23] enoxaparin 40 mg/0.4 mL subcutaneous syringe 40 mg subcut DAILY blood thinner 02/04/23 [History Last Taken 02/04/23] ipratropium 0.5 mg-albuterol 3 mg (2.5 mg base)/3 mL nebulization soln 3 ml inhalation TID PRN wheezing 02/04/23 [History Last Taken 02/01/23] lactose-reduced food with fiber 0.06 gram-1.5 kcal/mL oral liquid (Jevity 1.5 Apolinar) 350 ml feeding tube TID supplement 02/04/23 [History Last Taken 02/04/23] lidocaine 4 % topical patch 1 patch topical DAILY pain 02/04/23 [History Last Taken 02/01/23] melatonin 3 mg tablet 3 mg PO QHS PRN sleep 02/04/23 [History Last Taken 02/02/23] ondansetron 4 mg disintegrating tablet 4 mg PO Q8H PRN nausea and vomiting 02/04/23 [History Last Taken Unknown] oxycodone 5 mg tablet 2.5 mg PO Q4H PRN pain (scale score 4-6) 02/04/23 [History Last Taken 02/03/23] pantoprazole 40 mg tablet,delayed release 40 mg PO QHS stomach 02/04/23 [History Last Taken 02/03/23] polyethylene glycol 3350 17 gram oral powder packet (Miralax) 17 g PO DAILY constipation 02/04/23 [History Last Taken 02/04/23] Allergy/AdvReac Type Severity Reaction Status Date / Time Sulfa (Sulfonamide Allergy Rash Verified 09/18/22 14:05 Antibiotics) [sulfa drugs] shrimp AdvReac Nausea Verified 09/18/22 14:05 Family History Brother Skin cancer Father COPD (chronic obstructive pulmonary disease) Brother Myocardial infarction Surgical History History of breast biopsy History of cholecystectomy History of lumbar fusion History of mandibular surgery History of partial hysterectomy History of tonsillectomy History of ureteroscopy Social History household members: spouse Smoking Status: Former smoker alcohol intake: never substance use type: does not use ROS Constitutional Constitutional: Denies chills, fever(s) or weight gain ENT HEENT: Denies headache(s), nasal congestion or nasal discharge Cardiovascular Cardiovascular: Denies chest pain or palpitations Respiratory/Chest Respiratory/Chest: Denies cough, excessive phlegm production or shortness of breath with exertion Gastrointestinal Gastrointestinal: Denies abdominal pain, nausea or vomiting Genitourinary Genitourinary: Denies dysuria Musculoskeletal Musculoskeletal: Denies joint pain or joint swelling Integumentary Integumentary: Denies rash or wounds Neurologic Neurologic: Denies focal weakness, numbness or tingling Psychiatric Psychiatric: Denies anxiety, auditory hallucinations, depression, homicidal ideation or suicidal ideation Vital Signs Vital Signs Vital Signs: 02/04/23 13:18 Temperature 97.2 F L Temperature Source Temporal Pulse Rate 99 Respiratory Rate 18 Blood Pressure 124/62 H Blood Pressure Mean 82 Pulse Ox 94 Oxygen Delivery Method Room Air Physical Exam Const alert General Appearance: cooperative HEENT normocephalic Eyes PERRL and EOMs intact bilaterally Neck supple, no JVD and no carotid bruits Resp normal respiratory effort, normal air movement and clear to auscultation bilaterally Cardio regular rate and regular rhythm GI normal to inspection, nondistended, normoactive bowel sounds, non-tender and non-distended GI Narrative: Peg present. Extremity normal capillary refill General Extremity: Negative for edema Skin no rashes or lesions noted General Skin Exam: no breakdown Psych affect normal Appearance: appropriate Assessment & Plan Assessment/Plan (1) Debility: (2) Fall: (3) Multiple rib fractures: (4) GERD (gastroesophageal reflux disease): (5) Dysphagia: (6) Parkinson disease: (7) Chronic liver disease: PLAN: Plan 77 year old female with below past medical history hospitalized for fall, multiple left posterior rib fractures, admitted to TCU with debility, here for rehabilitation, strengthening, prior to discharge home with . * Debility - PT/OT. * Dysphagia - ST. * Pain - Tylenol 1000mg q8, Oxycodone 2.5mg q4h prn pain (4-10), Lidoderm patch topical daily. * Bowel - Miralax 17gm daily, senna/colace 1 tablet bid prn, Magnesium citrate 300ml po daily prn. * Adult immunization - Administer pneumonia vaccine, covid vaccine, flu vaccine as appropriate. * DVT prophylaxis - Lovenox 40mg sc daily. * Parkinson Disease - Sinemet 25/100mg 1.5 4x/day. * Shortness of breath - Duoneb 3ml tid prn. * Dysphagia/peg - Jevity 1.5 350ml jt tid. * Insomnia - Melatonin 3mg qhs prn. * Nausea - Zofran odt 4mg q8h prn. * GERD - Pantoprazole 40mg qhs.
[2023-02-04] MEDS: Carbidopa/Levodopa 25/100 Tablet PO (17:23)
--- NOTE | 2023-02-04 17:43 | NURSING ---
PT AGITATED REFUSED JEVITY. STATING WHAT WERE YOU DOING WITH MY . EXPLAINED TO PT WE WERE JUST TALKING AND WAS ASKING HIM QUESTIONS FOR YOUR ADMIT. PT STATED HES NOT COMING BACK FOR ME. THIS NURSE STATED HE WOULD BE BACK IN THE MORNING. PT STATED NO HE WONT AND I WANT TO GO HOME. DID A LITTLE MORE ONE ON ONE WITH PT. PT CALM AT THIS TIME AND SITTING IN RECLINER. RN AWARE
[2023-02-04] MEDS: Acetaminophen 650 MG/20 ML UDC 1000 MG JT (21:49)
[2023-02-04] MEDS: Lansoprazole 15 MG Capsule.DR 30 MG GT (21:50)
[2023-02-04] MEDS: Menthol/Lanolin/Calamine/Znox 113 GM Tube 1 APPLIC TOPICAL (21:50)
[2023-02-04] MEDS: Carbidopa/Levodopa 25/100 Tablet GT (21:51)
[2023-02-04] MEDS: Jevity 1.5. 1,000 ML Bottle 350 ML JT (21:51)
[2023-02-05 05:59] LABS: Absolute Lymphocyte Count 0.89 X10^3/uL (0.83-4.51); Absolute Neutrophil Count 3.1 X10^3/uL (2.0-7.7); Basophil# 0.03 X10^3/uL; Basophil% 0.6 % (0-1); Eosinophil# 0.17 X10^3/uL; Eosinophils% 3.6 % (0-5); Hemoglobin 12.8 g/dL (12.0-15.0); Lymphocyte # 0.89 X10^3/ul (0.83-4.51); Lymphocyte % 18.8 % (19-41); Mean Corpuscular Hgb 30.1 pg (27.0-32.0); Mean Corpuscular Volume 94.1 fL (81-99); Mean Platelet Vol. 10.5 fl (6.2-12.0); Monocyte# 0.51 X10^3/uL; Monocyte% 10.8 % (0-10); NRBC Flagged by Analyzer 0 % (0-5); Neutrophil # 3.12 X10^3/uL (2.7-7.7); Neutrophil % 65.8 % (47-70); Platelet Count 172 K/mm3 (150-450); RBC Distribution Width CV 12.1 % (11.6-14.6); RBC Distribution Width SD 41.6 fl (35.1-43.9); Red Blood Count 4.25 M/mm3 (4.2-5.4); White Blood Count 4.7 K/mm3 (4.4-11.0)
[2023-02-05] MEDS: Carbidopa/Levodopa 25/100 Tablet GT ×4 (05:59→21:53)
[2023-02-05] MEDS: Jevity 1.5. 1,000 ML Bottle 350 ML JT (05:59)
[2023-02-05] MEDS: Acetaminophen 650 MG/20 ML UDC 1000 MG JT ×3 (06:02→21:53)
[2023-02-05 07:01] LABS: Anion Gap 3 (5-15); BUN 22 mg/dL (7-18); Chloride 100 mmol/L (98-107); Creatinine, Serum 0.56 mg/dL (0.55-1.02); EST Glomerular Filtration Rate 110 mL/min (>60); Est Glom Filt Rate - Afr Amer 133 mL/min (>60); Estimated Creatinine Clearance 31.68 ml/min; Glucose 89 mg/dL (74-106); Sodium Level 132 mmol/L (136-145)
[2023-02-05] MEDS: Lidocaine 5% Patch 1 PATCH TOPICAL (07:58)
[2023-02-05] MEDS: Menthol/Lanolin/Calamine/Znox 113 GM Tube 1 APPLIC TOPICAL ×2 (08:10→21:52)
[2023-02-05] MEDS: Flu Vacc QS2023-24(65YR UP)/PF 240 MCG/0.7 ML Syringe IM (08:24)
[2023-02-05 09:35] VITALS: PULSE 96; RESP 16
--- NOTE | 2023-02-05 10:35 | NURSING ---
Photographer Aerial Note; Activity Asset: Corie Reynoso has returned to TCU for therapy after a fall at home. She remains independent in her choice of daily activities however needs assistance at this time with smaller tasks due to her Parkinson's. She is able to read w/her magnifying glass but harder to hold the paper or books now. Yemi stated she usually sleeps most of the day and with this new decline and he will be hear daily to visit with her. Staff will continue to do weekly visits and see if there is anything she may need.
[2023-02-05] MEDS: Tuberculin,Purif.prot.deriv. 50 TU/ML Vial 0.1 ML ID (11:59)
[2023-02-05 15:05] VITALS: BP 128/81; PULSE 90; RESP 24; TEMP 36.5; O2SAT 96
[2023-02-05] MEDS: Jevity 1.5. 1,000 ML Bottle 360 ML JT (16:45)
[2023-02-05] MEDS: Jevity 1.5. 1,000 ML Bottle 120 ML GT (21:52)
[2023-02-05] MEDS: Lansoprazole 15 MG Capsule.DR 30 MG GT (21:53)
[2023-02-05] MEDS: oxyCODONE 5 MG Tablet 2.5 MG GT (22:47)
[2023-02-06] MEDS: Carbidopa/Levodopa 25/100 Tablet GT ×4 (05:18→21:23)
[2023-02-06] MEDS: Acetaminophen 650 MG/20 ML UDC 1000 MG JT ×3 (05:19→21:24)
[2023-02-06] MEDS: Lidocaine 5% Patch 1 PATCH TOPICAL (08:17)
[2023-02-06] MEDS: Polyethylene Glycol 3350 17 GM PACKET GT (08:17)
[2023-02-06] MEDS: Jevity 1.5. 1,000 ML Bottle 360 ML JT ×3 (08:31→17:52)
[2023-02-06] MEDS: Miconazole Nitrate 43 GM Bottle 1 APPLIC TOPICAL ×2 (08:32→21:36)
[2023-02-06] MEDS: Menthol/Lanolin/Calamine/Znox 113 GM Tube 1 APPLIC TOPICAL ×2 (08:33→21:36)
--- NOTE | 2023-02-06 09:23 | PCM.PN.DRR ---
TCU RX Drug Regimen Review Subjective/Objective Subjective/Objective: Subjective: 77 YOF admitted to an outside hospital s/p a fall at home resulting in multiple rib fractures. Admitted to TCU 02/04/23 fir rehabilitation and strengthening prior to discharge home where she resides with her . Objective: Allergies Sulfa (Sulfonamide Antibiotics) [sulfa drugs] Allergy (Verified 09/18/22 14:05) Rash shrimp Adverse Reaction (Verified 09/18/22 14:05) Nausea Current Medications Generic Name Dose Route Start Last Admin Trade Name Freq PRN Reason Stop Dose Admin Acetaminophen 1,000 mg 02/04/23 22:00 02/06/23 05:19 Acetaminophen 650 Mg/20 Ml Udc JT 1,000 mg Q8 CHERI Administration Albuterol/Ipratropium 3 ml 02/04/23 13:40 Ipratropium/Albuterol Sulfate 3 Ml Ampul.Neb INHALATION TID PRN wheezing Calamine/Phenol 1 applic 02/04/23 22:00 02/06/23 08:33 Menthol/Lanolin/Calamine/Znox 113 Gm Tube TOPICAL 1 applic BID CHERI Administration Protocol Carbidopa/Levodopa 1.5 tablet 02/04/23 22:00 02/06/23 05:18 Carbidopa/Levodopa 25/100 Tablet GT 1.5 tablet 4X/DAY CHERI Administration Enteral Nutritional Formula 120 ml 02/05/23 22:00 02/05/23 21:52 Jevity 1.5. 1,000 Ml Bottle GT 120 ml HS CHERI Administration Enteral Nutritional Formula 360 ml 02/05/23 17:00 02/06/23 08:31 Jevity 1.5. 1,000 Ml Bottle JT 360 ml 0800,1200,1700 CHERI Administration Lansoprazole 30 mg 02/04/23 22:00 02/05/23 21:53 Lansoprazole 15 Mg Capsule. GT 30 mg QHS CHERI Administration Lidocaine 1 patch 02/05/23 10:00 02/06/23 08:17 Lidocaine 5% Patch TOPICAL 1 patch DAILY CHERI Administration Magnesium Citrate 300 ml 02/04/23 19:42 Magnesium Citrate 300 Ml JT DAILY PRN Constipation Melatonin 3 mg 02/04/23 19:42 Melatonin 3 Mg Tablet GT QHS PRN sleep Miconazole Nitrate 1 applic 02/06/23 10:00 02/06/23 08:32 Miconazole Nitrate 43 Gm Bottle TOPICAL 1 applic BID CHERI Administration Protocol Ondansetron HCl 4 mg 02/04/23 19:42 Ondansetron Odt 4 Mg Tablet GT Q8H PRN nausea and vomiting Oxycodone HCl 2.5 mg 02/04/23 19:43 02/05/23 22:47 Oxycodone 5 Mg Tablet GT 2.5 mg Q4H PRN Administration Pain Score 4-10 Polyethylene Glycol 17 gm 02/05/23 10:00 02/06/23 08:17 Polyethylene Glycol 3350 17 Gm Packet GT 17 gm DAILY CHERI Administration Senna/Docusate Sodium 1 tablet 02/04/23 19:43 Senna/Docusate Sodium 1 Tablet GT BID PRN Constipation Sodium Chloride 10 - 40 ml 02/04/23 13:56 0.9% Saline Lock 10 Ml Syringe IV UD PRN SALINE FLUSH Tuberculin PPD 0.1 ml 02/12/23 10:00 Tuberculin,Purif.Prot.Deriv. 50 Tu/Ml Vial ID 02/12/23 10:01 X1 ONE Problem List (Updated 02/04/23 @ 15:[address] George Jacob MD) Multiple rib fractures (Acute) Fall (Acute) GERD (gastroesophageal reflux disease) (Acute) Dysphagia (Acute) Parkinson disease (Acute) Chronic liver disease (Chronic) Debility (Acute) Vital Signs Temp Pulse Resp BP Pulse Ox O2 Del Method 97.7 F L 90 24 H 128/81 H 96 Room Air 02/05/23 15:05 02/05/23 15:05 02/05/23 15:05 02/05/23 15:05 02/05/23 15:05 02/05/23 15:05 Oxygen Delivery Method Room Air Weight: 43.998 kg Body Mass Index (BMI) 15.6 Sodium 132 mmol/L (136-145) L 02/05/23 05:20 Potassium 4.0 mmol/L (3.5-5.1) 02/05/23 05:20 Chloride 100 mmol/L (98-107) 02/05/23 05:20 Carbon Dioxide 29.0 mmol/L (21.0-32.0) 02/05/23 05:20 Anion Gap 3 (5-15) L 02/05/23 05:20 BUN 22 mg/dL (7-18) H 02/05/23 05:20 Creatinine 0.56 mg/dL (0.55-1.02) 02/05/23 05:20 Est GFR (MDRD) Af Amer 133 mL/min (>60) 02/05/23 05:20 Est GFR (MDRD) Non-Af 110 mL/min (>60) 02/05/23 05:20 BUN/Creatinine Ratio 39.0 RATIO (10-20) H 02/05/23 05:20 Glucose 89 mg/dL (74-106) 02/05/23 05:20 Assessment/Plan: 1. Acetaminophen 1000mg GT Q8h, Lidocaine patch topically Daily, Oxycodone 2.5mg PO Q4h PRN Pain 4-10. Please continue to monitor for increased/decreased S/S pain, topical/site irritation with lidocaine patch use, constipation, respiratory depression/oversedation with narcotic use. -The patient has required 1 PRN oxycodone dose since admission. Premedication pain rated 5/10, post medication pain rated 0. Patient's pain appears under control at this time. 2. Parkinson Disease: Sinemet 25/100mg 1.5 tabs GT 4x/day. Please continue to monitor for dizziness, headache, swelling, nausea, constipation. 3. GERD: Prevacid 30mg PO QHS. Please continue to monitor for stomach upset, bloating, headache. Please also encourage non-pharmacologic treatments to help minimize GERD exacerbations and flare-ups. 4. SOB: Duoneb nebulizations TID PRN. Please continue to monitor for SOB, HR (range 90-99), PRN medication usage. -The patient has used zero PRN medications doses to date 5. Nausea: Zofran 4mg Q8h PRN. Please continue to monitor for headache, PRN medication usage. The patient has used zero PRN medication doses since admission. 6. Sleep: Melatonin 3mg HS PRN. Please continue to monitor for oversedation, drowsiness, PRN medication usage. If medication appears ineffective please consider administering at least 2 hours prior to bedtime for optimum effect. The patient has used zero doses since admission. 7. Skin Integrity: Calmoseptine topically BID, Desonex topically BID. Please continue to monitor for skin irritation, redness, ulcer formation. 8. Bowel: Miralax 17g GT Daily, Senna/Docusate 1 tab BID PRN, Magnesium citrate 200mL Daily PRN. Please continue to monitor for increased/decreased constipation and/or diarrhea. - to date, the patient has not had a documented bowel movement. Please consider giving PRN medication to help facilitate a BM, thank you. Assessment/Plan for indications treated with psychotropic medications: None Medical chart and medication regimen reviewed. The following medication irregularities or issues were identified: None Date Date of Note:: 02/06/23
--- NOTE | 2023-02-06 13:58 | CASEMGMT ---
Social Work Met with patient and to complete initial assessment. Pt known to this worker from previous stay. No changes to previous assessment. Confirmed full code. provided copies of advanced directives. Educated to [facility] insurance with 02/10 and continued stay is not guaranteed with each review. Pt/ goal is to return home. SW will continue to follow for DC planning. Sara Vieira, LESLEY SANW
--- NOTE | 2023-02-06 15:27 | NURSING ---
Caridad RN,wound nurse SEEN PT TODAY FOR HER BOTTOM.
[2023-02-06 15:32] VITALS: BP 116/68; PULSE 88; RESP 16; TEMP 36.7; O2SAT 96
[2023-02-06 18:10] VITALS: PULSE 90; RESP 16; O2SAT 96
--- NOTE | 2023-02-06 18:20 | NURSING ---
PEG PLACEMENT VERIFIED, 0 RESIDUAL TODAY. PEG SITE CLEANED AND NEW DRESSING TO SITE. MOUTH CARE GIVEN. PT TOLERATED ALL WELL.
[2023-02-06] MEDS: oxyCODONE 5 MG Tablet 2.5 MG GT (21:22)
[2023-02-06] MEDS: Lansoprazole 15 MG Capsule.DR 30 MG GT (21:24)
[2023-02-06] MEDS: Jevity 1.5. 1,000 ML Bottle 120 ML GT (22:20)
[2023-02-07] MEDS: Acetaminophen 650 MG/20 ML UDC 1000 MG JT ×3 (05:48→20:42)
[2023-02-07] MEDS: Carbidopa/Levodopa 25/100 Tablet GT ×4 (05:49→20:44)
[2023-02-07 05:58] VITALS: O2SAT 95
[2023-02-07] MEDS: Jevity 1.5. 1,000 ML Bottle 360 ML JT ×3 (09:00→18:00)
[2023-02-07 09:25] LABS: Anion Gap 8 (5-15); BUN 25 mg/dL (7-18); BUN/Creat Ratio 40.3 RATIO (10-20); Calcium,Total 9.3 mg/dL (8.5-10.1); Chloride 99 mmol/L (98-107); Creatinine, Serum 0.62 mg/dL (0.55-1.02); EST Glomerular Filtration Rate 99 mL/min (>60); Est Glom Filt Rate - Afr Amer 119 mL/min (>60); Estimated Creatinine Clearance 31.68 ml/min; Glucose 109 mg/dL (74-106); Potassium 4.5 mmol/L (3.5-5.1); Sodium Level 136 mmol/L (136-145)
[2023-02-07] MEDS: Miconazole Nitrate 43 GM Bottle 1 APPLIC TOPICAL ×2 (11:00→20:53)
[2023-02-07] MEDS: Lidocaine 5% Patch 1 PATCH TOPICAL (11:00)
[2023-02-07] MEDS: Menthol/Lanolin/Calamine/Znox 113 GM Tube 1 APPLIC TOPICAL ×2 (11:00→20:53)
[2023-02-07 15:50] VITALS: BP 109/64; PULSE 95; RESP 16; TEMP 36.6; O2SAT 95
[2023-02-07] MEDS: Lansoprazole 15 MG Capsule.DR 30 MG GT (20:43)
[2023-02-07] MEDS: oxyCODONE 5 MG Tablet 2.5 MG GT (21:46)
[2023-02-07] MEDS: MELATONIN 3 MG TABLET GT (21:47)
[2023-02-07] MEDS: Jevity 1.5. 1,000 ML Bottle 120 ML GT (21:49)
[2023-02-08] MEDS: Carbidopa/Levodopa 25/100 Tablet GT ×4 (05:17→21:07)
[2023-02-08] MEDS: Acetaminophen 650 MG/20 ML UDC 1000 MG JT ×3 (05:17→21:09)
[2023-02-08 08:50] VITALS: BP 124/73; PULSE 97; RESP 16; TEMP 36.7; O2SAT 95
[2023-02-08] MEDS: Jevity 1.5. 1,000 ML Bottle 360 ML JT ×3 (08:52→17:36)
[2023-02-08] MEDS: Lidocaine 5% Patch 1 PATCH TOPICAL (08:52)
[2023-02-08] MEDS: Miconazole Nitrate 43 GM Bottle 1 APPLIC TOPICAL ×2 (08:53→21:09)
[2023-02-08] MEDS: Menthol/Lanolin/Calamine/Znox 113 GM Tube 1 APPLIC TOPICAL ×2 (08:53→21:09)
[2023-02-08] MEDS: Polyethylene Glycol 3350 17 GM PACKET GT (08:53)
[2023-02-08 20:06] VITALS: O2SAT 94
[2023-02-08] MEDS: MELATONIN 3 MG TABLET GT (21:08)
[2023-02-08] MEDS: Lansoprazole 15 MG Capsule.DR 30 MG GT (21:08)
[2023-02-08] MEDS: Jevity 1.5. 1,000 ML Bottle 120 ML GT (21:40)
[2023-02-09] MEDS: Carbidopa/Levodopa 25/100 Tablet GT ×4 (05:44→21:22)
[2023-02-09] MEDS: Acetaminophen 650 MG/20 ML UDC 1000 MG JT ×3 (05:44→21:22)
[2023-02-09 09:24] VITALS: BP 138/78; PULSE 115; RESP 14; TEMP 36.7; O2SAT 96
[2023-02-09] MEDS: Menthol/Lanolin/Calamine/Znox 113 GM Tube 1 APPLIC TOPICAL ×2 (09:27→21:23)
[2023-02-09] MEDS: Jevity 1.5. 1,000 ML Bottle 360 ML JT ×3 (09:27→17:13)
[2023-02-09] MEDS: Miconazole Nitrate 43 GM Bottle 1 APPLIC TOPICAL ×2 (09:27→21:23)
[2023-02-09] MEDS: Lidocaine 5% Patch 1 PATCH TOPICAL (09:28)
[2023-02-09] MEDS: Lansoprazole 15 MG Capsule.DR 30 MG GT (21:22)
[2023-02-09] MEDS: Jevity 1.5. 1,000 ML Bottle 120 ML GT (22:10)
[2023-02-09] MEDS: MELATONIN 3 MG TABLET GT (22:11)
[2023-02-10] MEDS: Carbidopa/Levodopa 25/100 Tablet GT ×4 (05:46→20:18)
[2023-02-10] MEDS: Acetaminophen 650 MG/20 ML UDC 1000 MG JT ×3 (05:46→20:18)
[2023-02-10 06:45] VITALS: PULSE 96; RESP 16; O2SAT 93
[2023-02-10] MEDS: Jevity 1.5. 1,000 ML Bottle 360 ML JT ×3 (08:42→17:52)
[2023-02-10] MEDS: Miconazole Nitrate 43 GM Bottle 1 APPLIC TOPICAL ×2 (08:42→20:22)
[2023-02-10] MEDS: Polyethylene Glycol 3350 17 GM PACKET GT (08:42)
[2023-02-10] MEDS: Lidocaine 5% Patch 1 PATCH TOPICAL (08:43)
[2023-02-10] MEDS: Menthol/Lanolin/Calamine/Znox 113 GM Tube 1 APPLIC TOPICAL ×2 (08:44→20:22)
--- NOTE | 2023-02-10 10:30 | NURSING ---
Pt residual checked 0ml noted. Pt tolerated tube feeds.
--- NOTE | 2023-02-10 11:11 | NURSING ---
Addendum entered by Aislinn Sam 02/10/23 15:59: notified RN that patient would like to get the covid vaccine. Order placed. Original Note: Spoke with and patient about covid vaccine, VIS provided. asked for time to talk if over with his .
[2023-02-10 13:14] VITALS: BP 111/64; PULSE 99; RESP 16; TEMP 36.4; O2SAT 97
--- NOTE | 2023-02-10 18:45 | NURSING ---
Pt residual checked 0ml noted. Pt tolerated tube feed.
[2023-02-10] MEDS: oxyCODONE 5 MG Tablet 2.5 MG GT (20:17)
[2023-02-10] MEDS: Lansoprazole 15 MG Capsule.DR 30 MG GT (20:19)
[2023-02-10] MEDS: MELATONIN 3 MG TABLET GT (20:19)
[2023-02-10] MEDS: Jevity 1.5. 1,000 ML Bottle 120 ML GT (20:59)
[2023-02-11] MEDS: Carbidopa/Levodopa 25/100 Tablet GT ×4 (05:26→20:26)
[2023-02-11] MEDS: Acetaminophen 650 MG/20 ML UDC 1000 MG JT ×3 (05:27→20:26)
--- NOTE | 2023-02-11 08:00 | NURSING ---
Residual checked prior to tube feed. 0 ML of residual pt tolerated feed.
[2023-02-11] MEDS: Jevity 1.5. 1,000 ML Bottle 360 ML JT ×3 (08:02→17:59)
[2023-02-11] MEDS: Lidocaine 5% Patch 1 PATCH TOPICAL (11:10)
[2023-02-11] MEDS: Miconazole Nitrate 43 GM Bottle 1 APPLIC TOPICAL ×2 (11:11→20:37)
[2023-02-11] MEDS: Menthol/Lanolin/Calamine/Znox 113 GM Tube 1 APPLIC TOPICAL ×2 (11:12→20:37)
[2023-02-11] MEDS: COVID VAC 23-24(12UP)(ANDU)/PF 50 MCG/0.5 ML SYRINGE IM (11:17)
[2023-02-11 13:52] VITALS: BMI 15.7
[2023-02-11 14:46] VITALS: BP 114/67; PULSE 102; RESP 16; TEMP 36.4; O2SAT 96
--- NOTE | 2023-02-11 15:56 | CASEMGMT ---
Social Work Insurance issued LCD 02/13, DC 02/14. SW spoke with pt and . very upset with insurance not allowing ample time for pt to improve. aware of appeal rights and plans to appeal. would also like to pay for another week of therapy. SW agreed and explained to provide 7 days of funds to cafeteria cashier's office by 02/14. agreeable. Plan: LCD 02/13, appealing, paying privately to remain at least another week LESLEY SethiW
--- NOTE | 2023-02-11 15:57 | CASEMGMT ---
Social Work BIMS () and PHQ-2 () completed for MDS assessment. Sara Vieira MSW COMMUNITY HEALTH SPECIALIST
[2023-02-11] MEDS: oxyCODONE 5 MG Tablet 2.5 MG GT ×2 (16:27→20:25)
--- NOTE | 2023-02-11 19:15 | NURSING ---
Residual checked prior to tube feed. 0 ML of residual pt tolerated feed.
[2023-02-11] MEDS: MELATONIN 3 MG TABLET GT (20:25)
[2023-02-11] MEDS: Lansoprazole 15 MG Capsule.DR 30 MG GT (20:26)
[2023-02-11 20:40] VITALS: O2SAT 96
[2023-02-11] MEDS: Jevity 1.5. 1,000 ML Bottle 120 ML GT (22:11)
[2023-02-12] MEDS: Carbidopa/Levodopa 25/100 Tablet GT ×4 (04:34→20:19)
[2023-02-12] MEDS: Acetaminophen 650 MG/20 ML UDC 1000 MG JT ×3 (04:35→20:19)
[2023-02-12 04:41] VITALS: O2SAT 94
[2023-02-12 05:44] LABS: Absolute Lymphocyte Count 0.73 X10^3/uL (0.83-4.51); Absolute Neutrophil Count 5.1 X10^3/uL (2.0-7.7); Basophil# 0.03 X10^3/uL; Basophil% 0.5 % (0-1); Eosinophil# 0.26 X10^3/uL; Eosinophils% 3.9 % (0-5); Hematocrit 39.4 % (37-47); Hemoglobin 12.5 g/dL (12.0-15.0); Lymphocyte # 0.73 X10^3/ul (0.83-4.51); Mean Corp Hgb Conc 31.7 g/dL (32-36); Mean Corpuscular Hgb 30.3 pg (27.0-32.0); Mean Corpuscular Volume 95.6 fL (81-99); Mean Platelet Vol. 9.5 fl (6.2-12.0); Monocyte# 0.47 X10^3/uL; Monocyte% 7.1 % (0-10); NRBC Flagged by Analyzer 0 % (0-5); Neutrophil # 5.13 X10^3/uL (2.7-7.7); Neutrophil % 77.2 % (47-70); Platelet Count 243 K/mm3 (150-450); RBC Distribution Width CV 12.5 % (11.6-14.6); Red Blood Count 4.12 M/mm3 (4.2-5.4); White Blood Count 6.6 K/mm3 (4.4-11.0)
[2023-02-12 06:25] LABS: Anion Gap 3 (5-15); BUN 30 mg/dL (7-18); BUN/Creat Ratio 42.1 RATIO (10-20); Calcium,Total 8.7 mg/dL (8.5-10.1); Chloride 101 mmol/L (98-107); Creatinine, Serum 0.71 mg/dL (0.55-1.02); EST Glomerular Filtration Rate 84 mL/min (>60); Est Glom Filt Rate - Afr Amer 102 mL/min (>60); Estimated Creatinine Clearance 32.04 ml/min; Glucose 104 mg/dL (74-106); Potassium 3.9 mmol/L (3.5-5.1); Sodium Level 138 mmol/L (136-145)
[2023-02-12] MEDS: Miconazole Nitrate 43 GM Bottle 1 APPLIC TOPICAL ×2 (08:14→20:21)
[2023-02-12] MEDS: Menthol/Lanolin/Calamine/Znox 113 GM Tube 1 APPLIC TOPICAL ×2 (08:14→20:20)
[2023-02-12] MEDS: Jevity 1.5. 1,000 ML Bottle 360 ML JT ×3 (08:14→17:45)
[2023-02-12] MEDS: Lidocaine 5% Patch 1 PATCH TOPICAL (08:15)
--- NOTE | 2023-02-12 09:30 | NURSING ---
Pens And Pencils Dipper Note; MDS for 02/11 Complete
--- NOTE | 2023-02-12 10:44 | CASEMGMT ---
Social Work IDT met with patient and for care plan meeting. Discussed patient's progress in PT/OT/SN. [facility] issued LCD 02/13. is appealing and plans to pay privately if not overturned. would like to focus on steps to 2nd floor and more functional walking. Pt is painful d/t rib fx which prohibits from assisting with transfers from baseline, per . Wound nurse is following open area on buttocks. SW will await outcome of appeal and continue to follow for DC planning. Sara Vieira, EARLY HEAD START DIRECTOR [employer] DEVELOPER
--- NOTE | 2023-02-12 12:45 | PCA ---
reminded [facility]'s to turn bed and chair alarms back on when he shuts them off, often forgets that he has them off and will leave and they will be off by the time we go in on our two hour check and change.
--- NOTE | 2023-02-12 12:49 | CASEMGMT ---
Addendum entered by Sara Valdivia 02/12/23 15:14: Medical records request received from [facility] and sent to HIM to process. Will continue to follow. Original Note: Social Work Appealed filed - Will await medical records request from [facility]. sara valdivia, LESLEY SANW
[2023-02-12] MEDS: Tuberculin,Purif.prot.deriv. 50 TU/ML Vial 0.1 ML ID (13:13)
[2023-02-12 16:00] VITALS: BP 109/60; PULSE 99; RESP 18; TEMP 36.8; O2SAT 95
[2023-02-12] MEDS: oxyCODONE 5 MG Tablet 2.5 MG GT (20:18)
[2023-02-12] MEDS: Lansoprazole 15 MG Capsule.DR 30 MG GT (20:19)
[2023-02-12] MEDS: MELATONIN 3 MG TABLET GT (20:23)
[2023-02-12] MEDS: Jevity 1.5. 1,000 ML Bottle 120 ML GT (22:20)
[2023-02-13] MEDS: Acetaminophen 650 MG/20 ML UDC 1000 MG JT ×3 (04:29→21:07)
[2023-02-13] MEDS: Carbidopa/Levodopa 25/100 Tablet GT ×4 (04:29→21:07)
[2023-02-13] MEDS: Jevity 1.5. 1,000 ML Bottle 360 ML JT ×3 (08:43→17:49)
[2023-02-13] MEDS: Miconazole Nitrate 43 GM Bottle 1 APPLIC TOPICAL ×2 (08:45→21:08)
[2023-02-13] MEDS: Lidocaine 5% Patch 1 PATCH TOPICAL (08:46)
[2023-02-13] MEDS: Menthol/Lanolin/Calamine/Znox 113 GM Tube 1 APPLIC TOPICAL ×2 (08:50→21:08)
--- NOTE | 2023-02-13 09:51 | MDS.RN ---
Information for the mds was obtained from review of the clinical record, interview of resident, staff, and direct observation of resident's care.
[2023-02-13 14:12] VITALS: BP 99/56; PULSE 89; RESP 14; TEMP 36.7; O2SAT 96
[2023-02-13 19:41] LABS: Mucous, Urine 0 SEEN /hpf (<or=2+); Red Blood Cells-Urine 0 SEEN /hpf (0-5)
[2023-02-13 19:50] LABS: Color, Urine Yellow (Yellow); Glucose, Dipstick Normal (Normal); Ketone-Dipstick Negative (Negative); Leukocyte Esterase-Dipstick 500 /ul (Negative); Nitrite-Dipstick Negative (Negative); Occult Blood-Urine 25 /ul (Negative); Protein-Dipstick 30 mg/dl (Negative); Specific Gravity, Urine 1.015 (1.002-1.030); Urine Bilirubin Dipstick Negative (Negative); Urine Clarity Sl. Cloudy (Clear); Urine Urobilinogen 1 mg/dl (Normal); Urine pH 6.5 (5.0 - 8.0)
[2023-02-13 20:00] LABS: White Blood Cells >100 SEEN /hpf (0-5)
[2023-02-13 20:01] LABS: Bacteria 2+ /hpf (None Seen); Squamous Epithelial Cells - UA 10-25 SEEN /hpf (5-10)
[2023-02-13] MEDS: Lansoprazole 15 MG Capsule.DR 30 MG GT (21:07)
[2023-02-13] MEDS: Jevity 1.5. 1,000 ML Bottle 120 ML GT (21:59)
[2023-02-14] MEDS: oxyCODONE 5 MG Tablet 2.5 MG GT (00:31)
[2023-02-14] MEDS: MELATONIN 3 MG TABLET GT (00:32)
[2023-02-14] MEDS: Acetaminophen 650 MG/20 ML UDC 1000 MG JT ×3 (05:48→20:56)
[2023-02-14] MEDS: Carbidopa/Levodopa 25/100 Tablet GT ×4 (05:49→20:55)
[2023-02-14 09:31] VITALS: BP 114/72; PULSE 99; RESP 16; TEMP 36.2; O2SAT 97
[2023-02-14] MEDS: Jevity 1.5. 1,000 ML Bottle 360 ML JT ×3 (09:35→18:21)
[2023-02-14] MEDS: Ciprofloxacin 250 MG Tablet PO ×2 (09:35→20:54)
[2023-02-14] MEDS: Miconazole Nitrate 43 GM Bottle 1 APPLIC TOPICAL ×2 (09:35→20:54)
[2023-02-14] MEDS: Lidocaine 5% Patch 1 PATCH TOPICAL (09:36)
--- NOTE | 2023-02-14 15:37 | CASEMGMT ---
Social Work SW received fax confirmation and held conversation with pt's that pt won appeal. No private pay required. [employer] to resume coverage of services. Will notify of NRD. SW will continue to follow. LESLEY SethiW
[2023-02-14] MEDS: Menthol/Lanolin/Calamine/Znox 113 GM Tube 1 APPLIC TOPICAL (20:54)
[2023-02-14] MEDS: Lansoprazole 15 MG Capsule.DR 30 MG GT (20:54)
[2023-02-14] MEDS: Jevity 1.5. 1,000 ML Bottle 120 ML GT (21:57)
[2023-02-15] MEDS: Acetaminophen 650 MG/20 ML UDC 1000 MG JT ×3 (05:27→20:22)
[2023-02-15] MEDS: Carbidopa/Levodopa 25/100 Tablet GT ×4 (05:27→20:23)
[2023-02-15] MEDS: Lidocaine 5% Patch 1 PATCH TOPICAL (09:41)
[2023-02-15] MEDS: Miconazole Nitrate 43 GM Bottle 1 APPLIC TOPICAL ×2 (09:42→20:24)
[2023-02-15] MEDS: Ciprofloxacin 250 MG Tablet PO ×2 (09:42→20:23)
[2023-02-15] MEDS: Jevity 1.5. 1,000 ML Bottle 360 ML JT ×3 (09:43→18:05)
[2023-02-15] MEDS: oxyCODONE 5 MG Tablet 2.5 MG GT (10:59)
[2023-02-15 15:19] VITALS: BP 115/61; PULSE 98; RESP 16; TEMP 36.5; O2SAT 96
--- NOTE | 2023-02-15 19:18 | NURSING ---
PLACEMENT VERIFIED, 0 RESIDUALS FOR BREAKFAST/LUNCH AND SUPPER. PT TOLERATED WELL.
[2023-02-15] MEDS: Lansoprazole 15 MG Capsule.DR 30 MG GT (20:23)
[2023-02-15] MEDS: Menthol/Lanolin/Calamine/Znox 113 GM Tube 1 APPLIC TOPICAL (20:24)
[2023-02-15] MEDS: MELATONIN 3 MG TABLET GT (20:25)
[2023-02-15] MEDS: Jevity 1.5. 1,000 ML Bottle 120 ML GT (22:43)
[2023-02-16] MEDS: Acetaminophen 650 MG/20 ML UDC 1000 MG JT ×3 (05:39→20:56)
[2023-02-16] MEDS: Carbidopa/Levodopa 25/100 Tablet GT ×4 (05:40→20:56)
[2023-02-16] MEDS: Miconazole Nitrate 43 GM Bottle 1 APPLIC TOPICAL ×2 (08:14→21:03)
[2023-02-16] MEDS: Ciprofloxacin 250 MG Tablet PO (08:14)
[2023-02-16] MEDS: Lidocaine 5% Patch 1 PATCH TOPICAL (08:14)
[2023-02-16] MEDS: Jevity 1.5. 1,000 ML Bottle 360 ML JT ×3 (08:20→18:02)
[2023-02-16 16:00] VITALS: BP 104/61; PULSE 91; RESP 16; TEMP 36.5; O2SAT 95
--- NOTE | 2023-02-16 18:25 | NURSING ---
PEG PLACEMENT VERIFIED, 10 CC RESIDUAL AT BREAKFAST/ O AT LUNCH/ O AT SUPPER. PT TOLERATED WELL.
[2023-02-16] MEDS: Lansoprazole 15 MG Capsule.DR 30 MG GT (20:56)
[2023-02-16] MEDS: Menthol/Lanolin/Calamine/Znox 113 GM Tube 1 APPLIC TOPICAL (21:04)
[2023-02-16] MEDS: Jevity 1.5. 1,000 ML Bottle 120 ML GT (22:02)
[2023-02-17] MEDS: Acetaminophen 650 MG/20 ML UDC 1000 MG JT ×3 (05:46→21:12)
[2023-02-17] MEDS: Carbidopa/Levodopa 25/100 Tablet GT ×4 (05:47→21:12)
[2023-02-17] MEDS: Menthol/Lanolin/Calamine/Znox 113 GM Tube 1 APPLIC TOPICAL ×2 (09:16→21:21)
[2023-02-17] MEDS: Jevity 1.5. 1,000 ML Bottle 360 ML JT ×3 (09:17→18:18)
[2023-02-17] MEDS: Lidocaine 5% Patch 1 PATCH TOPICAL (09:19)
[2023-02-17] MEDS: Miconazole Nitrate 43 GM Bottle 1 APPLIC TOPICAL ×2 (09:40→21:19)
[2023-02-17 14:08] VITALS: BP 112/65; PULSE 94; RESP 16; TEMP 36.2; O2SAT 99
[2023-02-17] MEDS: oxyCODONE 5 MG Tablet 2.5 MG GT (16:10)
[2023-02-17] MEDS: Lansoprazole 15 MG Capsule.DR 30 MG GT (21:12)
[2023-02-17] MEDS: Jevity 1.5. 1,000 ML Bottle 120 ML GT (22:10)
[2023-02-18] MEDS: Acetaminophen 650 MG/20 ML UDC 1000 MG JT ×3 (05:20→21:15)
[2023-02-18] MEDS: Carbidopa/Levodopa 25/100 Tablet GT ×4 (05:21→21:14)
[2023-02-18] MEDS: Jevity 1.5. 1,000 ML Bottle 360 ML JT ×3 (09:01→17:19)
[2023-02-18] MEDS: Menthol/Lanolin/Calamine/Znox 113 GM Tube 1 APPLIC TOPICAL ×2 (09:02→21:15)
[2023-02-18] MEDS: Lidocaine 5% Patch 1 PATCH TOPICAL (09:03)
[2023-02-18] MEDS: Miconazole Nitrate 43 GM Bottle 1 APPLIC TOPICAL ×2 (09:04→21:15)
[2023-02-18 11:20] VITALS: PULSE 91; RESP 16; O2SAT 96
[2023-02-18 13:00] VITALS: BMI 16.1
[2023-02-18 13:32] VITALS: BP 107/64; PULSE 93; RESP 20; TEMP 36.2; O2SAT 95
--- NOTE | 2023-02-18 17:30 | NURSING ---
PEG PLACEMENT CHECKED, O RESIDUAL FOR BREAKFAST,LUNCH AND SUPPER. PT TOLERATED WELL. NO COMPLAINTS.
[2023-02-18] MEDS: Lansoprazole 15 MG Capsule.DR 30 MG GT (21:13)
[2023-02-18] MEDS: MELATONIN 3 MG TABLET GT (22:13)
[2023-02-18] MEDS: Jevity 1.5. 1,000 ML Bottle 120 ML GT (22:14)
--- NOTE | 2023-02-18 23:29 | NURSING ---
PEG placement verified before medical van driver/HS feeding. 0 residual.
[2023-02-19 03:54] VITALS: PULSE 92; RESP 16; O2SAT 95
[2023-02-19] MEDS: Acetaminophen 650 MG/20 ML UDC 1000 MG JT ×3 (05:29→21:07)
[2023-02-19] MEDS: Carbidopa/Levodopa 25/100 Tablet GT ×4 (05:30→21:07)
[2023-02-19 05:49] LABS: Absolute Lymphocyte Count 0.92 X10^3/uL (0.83-4.51); Absolute Neutrophil Count 3.2 X10^3/uL (2.0-7.7); Basophil# 0.04 X10^3/uL; Basophil% 0.8 % (0-1); Eosinophil# 0.24 X10^3/uL; Hematocrit 39.6 % (37-47); Hemoglobin 12.4 g/dL (12.0-15.0); Lymphocyte # 0.92 X10^3/ul (0.83-4.51); Mean Corp Hgb Conc 31.3 g/dL (32-36); Mean Corpuscular Volume 95.9 fL (81-99); Mean Platelet Vol. 9.5 fl (6.2-12.0); Monocyte# 0.39 X10^3/uL; Monocyte% 8.1 % (0-10); NRBC Flagged by Analyzer 0 % (0-5); Neutrophil # 3.23 X10^3/uL (2.7-7.7); Neutrophil % 66.9 % (47-70); Platelet Count 290 K/mm3 (150-450); RBC Distribution Width CV 12.6 % (11.6-14.6); RBC Distribution Width SD 44.1 fl (35.1-43.9); Red Blood Count 4.13 M/mm3 (4.2-5.4); White Blood Count 4.8 K/mm3 (4.4-11.0)
[2023-02-19 06:15] LABS: Anion Gap 5 (5-15); BUN 25 mg/dL (7-18); BUN/Creat Ratio 39.9 RATIO (10-20); Chloride 103 mmol/L (98-107); Creatinine, Serum 0.63 mg/dL (0.55-1.02); EST Glomerular Filtration Rate 98 mL/min (>60); Est Glom Filt Rate - Afr Amer 118 mL/min (>60); Glucose 88 mg/dL (74-106); Potassium 4.4 mmol/L (3.5-5.1); Sodium Level 139 mmol/L (136-145)
[2023-02-19] MEDS: Lidocaine 5% Patch 1 PATCH TOPICAL (08:05)
[2023-02-19] MEDS: Miconazole Nitrate 43 GM Bottle 1 APPLIC TOPICAL ×2 (08:05→21:08)
[2023-02-19] MEDS: Menthol/Lanolin/Calamine/Znox 113 GM Tube 1 APPLIC TOPICAL ×2 (08:05→21:08)
[2023-02-19] MEDS: Jevity 1.5. 1,000 ML Bottle 360 ML JT ×3 (08:06→17:23)
--- NOTE | 2023-02-19 13:55 | CASEMGMT ---
Social Work SW followed up with pt's on DC plans. stated pt complete 13 steps and is confirming for pt to DC home 02/21. SW discussed skilled HHC at length with and is agreeable. SW provided printed list of skilled HHC agencies with quality and resource data via [employer]. No DME needs. Plan: DC home with 02/21, HHC PT/OT/SN. LESLEY SethiW
--- NOTE | 2023-02-19 14:54 | DS.PCM_ITS ---
Providers Date of Admission: 02/04/23 Primary Care Physician: Dr. Delfino Valderrama MD Reason For Visit: MULTIPLE FRACTURES RIBS LEFT SIDE, FALLS Diagnosis Discharge Diagnosis (1) Debility: Status: Acute Code(s): R53.81 - Other malaise (2) Fall: Status: Acute Code(s): W19.XXXA - Unspecified fall, initial encounter (3) Multiple rib fractures: Status: Acute Code(s): S22.49XA - Multiple fractures of ribs, unspecified side, initial encounter for closed fracture (4) GERD (gastroesophageal reflux disease): Status: Acute Code(s): K21.9 - Gastro-esophageal reflux disease without esophagitis (5) Dysphagia: Status: Acute Code(s): R13.10 - Dysphagia, unspecified (6) Parkinson disease: Status: Acute Code(s): G20 - Parkinson's disease (7) Chronic liver disease: Status: Chronic Code(s): K76.9 - Liver disease, unspecified Plan 77 year old female with below past medical history hospitalized for fall, multiple left posterior rib fractures, admitted to TCU with debility, here for rehabilitation, strengthening, prior to discharge home with . * Debility - PT/OT. * Dysphagia - ST. * Pain - Tylenol 1000mg q8, Oxycodone 2.5mg q4h prn pain (4-10), Lidoderm patch topical daily. * Bowel - Miralax 17gm daily, senna/colace 1 tablet bid prn, Magnesium citrate 300ml po daily prn. * Adult immunization - Administer pneumonia vaccine, covid vaccine, flu vaccine as appropriate. * DVT prophylaxis - Lovenox 40mg sc daily. * Parkinson Disease - Sinemet 25/100mg 1.5 4x/day. * Shortness of breath - Duoneb 3ml tid prn. * Dysphagia/peg - Jevity 1.5 350ml jt tid. * Insomnia - Melatonin 3mg qhs prn. * Nausea - Zofran odt 4mg q8h prn. * GERD - Pantoprazole 40mg qhs. Medications at Discharge Home Medications carbidopa 25 mg-levodopa 100 mg tablet 1.5 tab PO 4X/DAY parkinsons 02/04/23 melatonin 3 mg tablet 3 mg PO QHS PRN sleep 02/04/23 pantoprazole 40 mg tablet,delayed release 40 mg PO QHS stomach 02/04/23 acetaminophen 650 mg/20.3 mL oral solution 1,000 mg (31.2308 mL) J-tube Q8 #0 mL 02/19/23 lactose-reduced food with fiber 0.06 gram-1.5 kcal/mL oral liquid (Jevity 1.5 Hosea) 120 ml G-tube HS #0 mL 02/19/23 lactose-reduced food with fiber 0.06 gram-1.5 kcal/mL oral liquid (Jevity 1.5 Hosea) 360 ml J-tube 0800,1200,1700 #0 mL 02/19/23 lidocaine 5 % topical patch 1 patch topical DAILY 30 days #30 ea 02/19/23 menthol 0.44 %-zinc oxide 20.6 % topical ointment (Calmoseptine) 1 applic topical BID #0 grams 02/19/23 oxycodone 5 mg tablet 2.5 mg (1/2 x 5 mg) G-tube Q4H PRN Pain Score 4-10 7 days #21 tabs 02/19/23 Hospital Course Operations None Procedures None Summary of Care Provided Minutes Spent on Discharge: 35 Hospital Course: 77 year old female with below past medical history hospitalized for fall, multiple left posterior rib fractures, admitted to TCU with debility, here for rehabilitation, strengthening, prior to discharge home with . Discharge home with 02/21/2023, Home Health Care PT/OT/SN. Physical Exam Const alert General Appearance: cooperative HEENT normocephalic Eyes PERRL and EOMs intact bilaterally Neck supple, no JVD and no carotid bruits Resp normal respiratory effort, normal air movement and clear to auscultation bilaterally Cardio regular rate and regular rhythm GI normal to inspection, nondistended, normoactive bowel sounds, non-tender and non-distended GI Narrative: Peg present. Extremity normal capillary refill General Extremity: Negative for edema Skin no rashes or lesions noted General Skin Exam: no breakdown Psych affect normal Appearance: appropriate Medical Records Data Medical Nutrition Assessment Dietitian: Malnutrition Criteria Met Start: 02/05/23 11:14 Freq: Status: Active Protocol: Document 02/12/23 12:03 SLA (Rec: 02/12/23 12:04 SLA Desktop) Nutrition Malnutrition Evidence of Malnutrition Exists Yes Malnutrition (severe): Chronic Evidenced By Suboptimal Energy Intake ( Severe),Weight Loss (Severe), Physical Changes (Severe) Clinical Problem Chronic Disease or Condition Related Malnutrition Etiology related to issues w/ dysphagia /need for enteral nutrition as sole source of nutrition and inadequate energy intake Signs/Symptoms as evidenced by 18% wt loss x 2 yrs, 2.5% wt loss x 3 mo, po intake <75% of estimated nutritional needs x >18 mo and obvious fat/muscle loss throughout body; BMI 15.8 Status Active Problem Recommendation Dietitian Recommendations/Changes Continue Jevity 1.5: 360 ml tid at meal times w/ 180 ml water flush with each bolus feed and 120 ml at HS w/ 90 ml water flush to provide ~ 1800 hosea/ 77 gm pro/ 1541 ml free water/day. TF to promote gradual wt gain d/t BMI 15.8 Weight / BMI Weight Weight: 45.405 kg Body Mass Index (BMI) 16.1 ABG / Lab / Microbiology Data 02/19/23 05:08 02/19/23 05:08 Laboratory: Laboratory Results - last 24 hr 02/19/23 05:08: WBC 4.8, RBC 4.13 L, Hgb 12.4, Hct 39.6, MCV 95.9, MCH 30.0, MCHC 31.3 L, RDW Std Deviation 44.1 H, RDW Coeff of Santi 12.6, Plt Count 290, MPV 9.5, Immature Gran % (Auto) 0.200, Neut % (Auto) 66.9, Lymph % (Auto) 19.0, [place] % (Auto) 8.1, Eos % (Auto) 5.0, Baso % (Auto) 0.8, Absolute Neuts (auto) 3.2, Absolute Lymphs (auto) 0.92, Nucleated RBC % 0, Sodium 139, Potassium 4.4, Chloride 103, Carbon Dioxide 31.0, Anion Gap 5, BUN 25 H, Creatinine 0.63, Estim Creat Clear Calc 32.70, Est GFR (MDRD) Af Amer 118, Est GFR (MDRD) Non-Af 98, BUN/Creatinine Ratio 39.9 H, Glucose 88, Calcium 9.0 Microbiology: Microbiology 02/13/23 Unknown Urine Catheter - Catheter Urine Culture - Final Staphylococcus epidermidis#2 Staphylococcus epidermidis Enterococcus faecalis D/C Instructions Discharge Diet: - (NPO.) Discharge Activity: Return to Normal Activity, May Shower and Use Walker Weight Bearing Status: Weight bearing as tolerated Call your doctor if you observe: Fever of 101 or Higher, Inability to urinate, Inability to have a bowel movement, Shortness of breath, Dizziness, Fainting spells, Swelling in the ankles, Chest pain and Uncontrolled pain Additional Instructions: Discharge home with 02/21/2023, Home Health Care PT/OT/SN. Meaningful Use Info Meaningful Use Diagnoses (Choose all that apply): None applicable Discharge Plan Admission Admit Date/Time: 02/04/23 13:10 Primary Reason for Your Visit: Debility. Attending Provider: George Jacob Chi Primary Care Provider: Delfino Valderrama Instructions Additional Instructions / Restrictions: Discharge home with 02/21/2023, Home Health Care PT/OT/SN. Discharge Orders/Prescriptions Prescriptions: New lidocaine 5 % Adhesive Patch,Medicated 1 patch topical DAILY 30 Days Qty: 30 0RF oxycodone 5 mg Tablet 2.5 mg G-tube Q4H PRN (Reason: Pain Score 4-10) 7 Days Qty: 21 0RF acetaminophen 650 mg/20.3 mL Solution 1,000 mg J-tube Q8 Qty: 0 0RF menthol-zinc oxide [Calmoseptine] 0.44-20.6 % Ointment 1 applic topical BID Qty: 0 0RF Protocol: *Topical Application Instructions APPLICATION INSTRUCTIONS: bilateral buttocks Jevity 1.5 Hosea 0.06 gram-1.5 kcal/mL Liquid 360 ml J-tube 0800,1200,1700 Qty: 0 0RF Jevity 1.5 Hosea 0.06 gram-1.5 kcal/mL Liquid 120 ml G-tube HS Qty: 0 0RF Continued carbidopa-levodopa 25-100 mg tablet 1.5 tab PO 4X/DAY melatonin 3 mg tablet 3 mg PO QHS PRN (Reason: sleep) pantoprazole 40 mg tablet,delayed release (DR/EC) 40 mg PO QHS Discontinued carbidopa-levodopa 25-100 mg Tablet 1.5 tab feeding tube 0800,2200 Jevity 1.5 Hosea 240 ml G-tube Q6H Rx Instructions: 170cc water flush after bolus feeds lansoprazole 15 mg Capsule,Delayed Release(Dr/Ec) 30 mg G-tube QHS Qty: 0 0RF carbidopa-levodopa 25-100 mg Tablet 2 tab G-tube 1200,1700 Qty: 0 0RF acetaminophen 325 mg capsule 650 mg PO Q6H PRN (Reason: pain) enoxaparin 40 mg/0.4 mL syringe 40 mg subcut DAILY ipratropium-albuterol 0.5 mg-3 mg(2.5 mg base)/3 mL solution for nebulization 3 ml inhalation TID PRN (Reason: wheezing) lidocaine 4 % adhesive patch,medicated 1 patch topical DAILY Rx Instructions: may leave on for up to 12 hrs ondansetron 4 mg tablet,disintegrating 4 mg PO Q8H PRN (Reason: nausea and vomiting) oxycodone 5 mg tablet 2.5 mg PO Q4H PRN (Reason: pain (scale score 4-6)) polyethylene glycol 3350 [Miralax] 17 gram powder in packet 17 g PO DAILY Jevity 1.5 Hosea 0.06 gram-1.5 kcal/mL liquid 350 ml feeding tube TID Referrals / Follow Up: Delfino Valderrama MD [Primary Care Provider] - Disposition Disposition (needs filled in before D/C Order can be placed): Home Health Service
[2023-02-19 15:16] VITALS: BP 110/62; PULSE 96; RESP 16; TEMP 36.3; O2SAT 97
--- NOTE | 2023-02-19 18:23 | NURSING ---
PEG TUBE PLACEMENT VERIFIED. 0 RESIDUAL FOR BREAKFAST,LUNCH AND SUPPER. PT TOLERATED WELL AND NO COMPLAINTS.
[2023-02-19] MEDS: Lansoprazole 15 MG Capsule.DR 30 MG GT (21:06)
[2023-02-19] MEDS: Jevity 1.5. 1,000 ML Bottle 120 ML GT (21:07)
[2023-02-20] MEDS: Acetaminophen 650 MG/20 ML UDC 1000 MG JT ×3 (05:17→21:24)
[2023-02-20] MEDS: Carbidopa/Levodopa 25/100 Tablet GT ×4 (05:18→21:23)
[2023-02-20 08:26] VITALS: BP 118/79; PULSE 79; RESP 16; O2SAT 98
[2023-02-20] MEDS: Jevity 1.5. 1,000 ML Bottle 360 ML JT ×3 (08:28→17:54)
[2023-02-20] MEDS: Menthol/Lanolin/Calamine/Znox 113 GM Tube 1 APPLIC TOPICAL ×2 (08:40→21:23)
[2023-02-20] MEDS: Miconazole Nitrate 43 GM Bottle 1 APPLIC TOPICAL ×2 (08:40→21:23)
[2023-02-20] MEDS: Jevity 1.5. 1,000 ML Bottle 120 ML GT ×2 (12:32→22:12)
[2023-02-20 14:21] VITALS: BP 112/61; PULSE 90; RESP 16; TEMP 36.1; O2SAT 96
[2023-02-20] MEDS: MELATONIN 3 MG TABLET GT (21:20)
[2023-02-20] MEDS: Lansoprazole 15 MG Capsule.DR 30 MG GT (21:21)
[2023-02-21] MEDS: Acetaminophen 650 MG/20 ML UDC 1000 MG JT (06:37)
[2023-02-21] MEDS: Carbidopa/Levodopa 25/100 Tablet GT ×2 (06:38→11:59)
[2023-02-21] MEDS: Jevity 1.5. 1,000 ML Bottle 360 ML JT ×2 (09:18→12:00)
[2023-02-21] MEDS: Menthol/Lanolin/Calamine/Znox 113 GM Tube 1 APPLIC TOPICAL (09:19)
[2023-02-21] MEDS: Miconazole Nitrate 43 GM Bottle 1 APPLIC TOPICAL (09:20)
--- NOTE | 2023-02-21 10:55 | CASEMGMT ---
PHQ9 () and BIMS () assessments completed on this date for MDS assessment. KIKA Aquino
--- NOTE | 2023-02-21 10:56 | CASEMGMT ---
Social Work Extensive conversation with pt's spouse regarding discharge today. Active listening and support provided. Pt's spouse preferred home health provider is [facility]. Referral made and unable to accept due to home location. Pt's spouse notified and he is not choosing another provider, would like to know who PCP office uses. Phone call to PCP and office closed today. Pt's spouse updated. Spouse stating that he does not want home health care set up at this time. He will contact the PCP office on Friday to determine which provider they work with and if needed, he and PCP office will set up home health. No further dc needs. Plan: Home with 24 hour care of spouse KIKA Aquino
[2023-02-21 13:18] VITALS: BP 138/77; PULSE 78; RESP 16; TEMP 37.1; O2SAT 96
== END 2023-02-21 13:50 | disposition home or self-care (01) | DRG 560 ==
PROVIDERS: Admitting Provider Family Medicine Geriatric Medicine; PCP Internal Medicine; Visit Provider Family Medicine Geriatric Medicine
DX: S22.42XD Multiple fractures of ribs, left side, subsequent encounter for fracture with routine healing (principal); N39.0 Urinary tract infection, site not specified; G20.A1 Parkinson's disease without dyskinesia, without mention of fluctuations; K76.9 Liver disease, unspecified; K21.9 Gastro-esophageal reflux disease without esophagitis; W19.XXXD Unspecified fall, subsequent encounter; R13.10 Dysphagia, unspecified; Z87.891 Personal history of nicotine dependence; Z79.01 Long term (current) use of anticoagulants; Z79.899 Other long term (current) drug therapy; G47.00 Insomnia, unspecified; Z23 Encounter for immunization
CPT/HCPCS: 36415; 80048; 81001; 85025; 87077; 87086; 87088; 87186; 90480; 94667; 97110; 97116; 97162; 97166; 97530; 97535; 97802; G0008; 90662; 91322